=== PATIENT | female | born 1990 | race Caucasian/White ===

== ENCOUNTER 2017-03-02 18:09 | Inpatient (IN) ==
[2017-03-02] MEDS ORDERED: 0.9 % Sodium Chloride 1,000 ML IVC ONE (18:47)
--- NOTE | 2017-03-02 19:05 | Emergency Department Note ---
Disposition Clinical Impression: Abscess, Pain of left lower extremity, Elevated erythrocyte sedimentation rate Leukocytosis Qualifiers: Leukocytosis type: unspecified Qualified Code(s): D72.829 - Elevated white blood cell count, unspecified Disposition: Admitted As Inpatient Condition: Good Extremity Problem HPI - General Chief complaint: ED Extremity Problem,Nontraumatic Stated complaint: "infection in leg" Time Seen by Provider: 03/02/17 18:30 Source: patient Mode of arrival: private vehicle Limitations: no limitations Nursing Notes Reviewed: Yes Vital Signs Reviewed: Yes - History of Present Illness HPI Narrative: 26-year-old female former IVDU, hepatitis who presents to the ER with a chief complaint of left lower extremity pain. Patient reports that she believes on Sunday she was at [facility] and bumped her knee against some object. She states that she was having pain with ambulation and was seen at an urgent care last Sunday. She reports that she was diagnosed with muscle spasms and given anti-inflammatories and muscle relaxants. She states she continued to have pain over the weekend and was seen yesterday by her PCP who ordered an ultrasound of her leg, lab work and an x-ray. She states she was called today because of her lab work and was told to come to the ER for possible admission or transfer to [facility]. She denies any fevers at home. No nausea vomiting diarrhea chest pain or shortness of breath. She denies any recent IV drug use. She has not been on antibiotics. No other complaints. Pt Subjective Complaint: extremity pain Onset (ago): week(s) (1) Consistency: constant Injury Location: left, lower extremity Pain Scale: 9 Quality: sharp Radiation: proximal Improves with: nothing Worsens with: range of motion, weight bearing Associated symptoms: Reports: denies other symptoms - Related Data Home Medications Medication Instructions Recorded Confirmed Naproxen [Naprosyn] 500 mg PO BID PRN 03/02/17 03/02/17 Allergies Allergy/AdvReac Type Severity Reaction Status Date / Time Cyclobenzaprine Allergy Rash Verified 03/02/17 18:24 [From Flexeril] ketorolac [From Toradol] Allergy Hives Verified 10/08/16 15:23 tramadol [From Ultram] Allergy Hives Verified 10/08/16 15:23 All systems ED: reviewed and negative except as stated. Constitutional: Denies: fever Cardiovascular: Denies: chest pain Respiratory: Denies: dyspnea Gastrointestinal: Denies: abdominal pain, vomiting, diarrhea Integumentary: Denies: rash Past Medical History - Past Medical History Attestation: Yes The following information was validated with the patient. 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 history: Reports: endometriosis - Social History Smoking Status: Current every day smoker Smokeless Tobacco Status: No Alcohol use: Reports: none Drug use: Reports: none Physical Exam - General Limitations: no limitations General appearance: alert, in no apparent distress - Head Head exam: atraumatic, normocephalic, normal inspection - Eye Eye exam: Present: normal appearance, EOMI - ENT ENT exam: normal exam - Neck Neck exam: Present: normal inspection, full ROM - Chest Chest inspection: Present: normal inspection, symmetric chest wall rise - Respiratory Respiratory exam: Present: normal lung sounds bilaterally - Cardiovascular Cardiovascular exam: Present: normal rhythm, tachycardia, normal heart sounds - Abdominal Exam Abdominal exam: Present: soft, Non-Tender. Absent: tenderness - Extremities Exam Extremities exam: Present: normal inspection, full ROM - Expanded Upper Extremity Exam Shoulder exam: Present: normal inspection, full ROM Arm exam: Present: normal inspection, full ROM Elbow exam: Present: normal inspection, full ROM Forearm/Wrist exam: Present: normal inspection, full ROM Hand exam: Present: normal inspection, full ROM - Expanded Lower Extremity Exam Hip/Pelvis exam: Present: normal inspection, full ROM Upper leg exam: Present: normal inspection, tenderness (Tender anterior fasical compartment). Absent: full ROM, swelling Knee exam: Present: normal inspection. Absent: full ROM, tenderness, swelling Lower leg exam: Present: normal inspection, full ROM Ankle exam: Present: normal inspection, full ROM Foot/toe exam: Present: normal inspection, full ROM - Neurological Exam Neurological exam: Present: alert - Psychiatric Psychiatric exam: Present: normal affect, normal mood - Skin Skin exam: Present: warm, dry, intact, normal color Course Course Narrative: Patient seen and examined. Vital signs reviewed. She is afebrile here and tachycardic. She has pain out of proportion of the left lower extremity. I reviewed her labs which showed a white count of 21,000 with an ESR greater than 130 and an elevated CRP. We will get a CT scan with contrast of the lower extremity for evaluation. Patient reports she had a duplex ultrasound of the lower extremity yesterday which was negative for DVT. - Reevaluation(s) Reevaluation #1: Discussed results of labs and imaging with the patient. There is concern for an abscess formation in her proximal thigh. She is agreeable with blood cultures, antibiotics and admission. - Consultations Consultation #1: I discussed this patient with the on-call orthopedic surgeon Dr. Muhammad. Discussed patient's history and exam findings CT and labs. He reports to admit the patient to the hospitalist service and the patient would likely benefit from interventional radiology attempting to drain the abscess prior to any type of invasive intervention. Vital Signs Temperature 98.3 F 03/02/17 18:24 Pulse Rate 131 03/02/17 18:24 Respiratory Rate 16 03/02/17 18:24 Blood Pressure 118/70 03/02/17 18:24 O2 Sat by Pulse Oximetry 100 03/02/17 18:24 Temperature 98.4 F 03/02/17 23:27 Pulse Rate 90 03/02/17 23:27 Respiratory Rate 16 03/02/17 23:27 Blood Pressure 110/70 03/02/17 23:27 O2 Sat by Pulse Oximetry 98 03/02/17 23:27 Oxygen Delivery Oxygen Delivery Room Air Extremity Problem, Nontraumati - MDM Narrative Medical decision making narrative: 26-year-old female presents to the ER to the left lower tay any pain and difficulty ambulating. Has been going on for roughly 1 week in duration. No fevers at home. No recent antibiotics. Former history of IV drug abuse. She had abnormal labs which prompted her to come in today. Her white count is 28 here with an elevated ESR and CRP. CT scan shows abscess collection in the thigh encasing the femur. Patient was ordered blood cultures here with vancomycin and Cipro for coverage. Orthopedic surgery was consulted as well in the department and admitted to the hospitalist service. - Lab Data Lab results reviewed: Yes I reviewed the patient's lab results. Result diagrams: 03/02/17 19:06 03/02/17 19:06 Lab Results 03/02/17 03/02/17 03/02/17 Range/Units 19:06 19:06 19:06 WBC 28.7 H (4.3-11.1) K/mcL RBC 4.46 (3.82-4.97) M/mcL Hgb 12.3 (11.5-15.4) g/dL Hct 37.5 (35.3-44.9) % MCV 84.1 (83.0-100.0) fL MCH 27.6 L (28.0-33.3) pg MCHC 32.8 (31.6-35.5) g/dL RDW 14.2 (11.5-14.5) % Plt Count 541 H (140-400) K/mcL MPV 9.2 L (9.4-12.4) fL Immature Gran % 1.3 (0-4) % Seg Neutrophils % 81.5 % Lymphocytes % 14.2 % Monocytes % 2.8 % Eosinophils % 0.0 % Basophils % 0.2 % Neutrophils # 23.4 H (1.6-8.9) K/mcL Lymphocytes # 4.1 (0.6-4.6) K/mcL Monocytes # 0.8 (0.0-1.3) K/mcL Eosinophils # 0.0 (0.0-0.6) K/mcL Basophils # 0.1 (0.0-0.2) K/mcL ESR >= 130 H (0-15) mm/hr PT (9.4-12.1) Seconds INR Sodium 140 (136-145) mEq/L Potassium 3.8 (3.5-4.5) mEq/L Chloride 107 (98-109) mEq/L Carbon Dioxide 20 (19-29) mEq/L BUN 13 (7-20) mg/dL Creatinine 0.77 (0.57-1.11) mg/dL Est GFR ( Amer) > 60 (> 60) Est GFR (Non-Af Amer) > 60 (> 60) BUN/Creatinine Ratio 17 (6-26) Glucose 154 H (70-99) mg/dL Calculated Osmolality 293 (280-300) Calcium 9.7 (8.6-10.8) mg/dL Total Bilirubin (0.2-1.2) mg/dL Direct Bilirubin (0.0-0.5) mg/dL Indirect Bilirubin (0.0-1.2) mg/dL AST (5-34) Units/L ALT (0-55) Units/L Alkaline Phosphatase (38-126) Units/L Creatine Kinase 73 (29-168) Units/L C-Reactive Protein 151 H (Less than 5) mg/L Serum Total Protein (6.0-8.3) g/dL Albumin (3.5-5.0) g/dL Globulin (2.4-3.5) g/dL Albumin/Globulin Ratio (1.1-2.2) 03/02/17 03/02/17 Range/Units 19:51 19:51 WBC (4.3-11.1) K/mcL RBC (3.82-4.97) M/mcL Hgb (11.5-15.4) g/dL Hct (35.3-44.9) % MCV (83.0-100.0) fL MCH (28.0-33.3) pg MCHC (31.6-35.5) g/dL RDW (11.5-14.5) % Plt Count (140-400) K/mcL MPV (9.4-12.4) fL Immature Gran % (0-4) % Seg Neutrophils % % Lymphocytes % % Monocytes % % Eosinophils % % Basophils % % Neutrophils # (1.6-8.9) K/mcL Lymphocytes # (0.6-4.6) K/mcL Monocytes # (0.0-1.3) K/mcL Eosinophils # (0.0-0.6) K/mcL Basophils # (0.0-0.2) K/mcL ESR (0-15) mm/hr PT 17.7 H (9.4-12.1) Seconds INR 1.6 Sodium (136-145) mEq/L Potassium (3.5-4.5) mEq/L Chloride (98-109) mEq/L Carbon Dioxide (19-29) mEq/L BUN (7-20) mg/dL Creatinine (0.57-1.11) mg/dL Est GFR ( Amer) (> 60) Est GFR (Non-Af Amer) (> 60) BUN/Creatinine Ratio (6-26) Glucose (70-99) mg/dL Calculated Osmolality (280-300) Calcium (8.6-10.8) mg/dL Total Bilirubin 0.1 L (0.2-1.2) mg/dL Direct Bilirubin 0.1 (0.0-0.5) mg/dL Indirect Bilirubin 0.0 (0.0-1.2) mg/dL AST 14 (5-34) Units/L ALT 15 (0-55) Units/L Alkaline Phosphatase 106 (38-126) Units/L Creatine Kinase (29-168) Units/L C-Reactive Protein (Less than 5) mg/L Serum Total Protein 7.9 (6.0-8.3) g/dL Albumin 3.0 L (3.5-5.0) g/dL Globulin 4.9 H (2.4-3.5) g/dL Albumin/Globulin Ratio 0.6 L (1.1-2.2) - Radiology Data Radiology results reviewed: Yes I reviewed the patient's radiology results. Lower Extremity CT 03/02/17 18:46 IMPRESSION: 1. 5.5 x 5 x 9.2 cm irregular peripherally enhancing fluid collection within the proximal vastus intermedius muscle partially encasing the proximal left femoral diaphysis and compatible with an abscess. 2. No acute osseous abnormality. D/ / Gianfranco Bob MD / Gianfranco Bob MD Interpreting Provider: Gianfranco Bob MD S.B.A.R. - S.B.ALinoRLino Situation: Demographics, MOA Background: Presenting Complaint, Relevant PMH, Meds, & Allergies Assessment: Vital Signs, Course and respsone to treatment, Exam Concerns, Patient/Family Expectation, Pertinant Lab Results, Outstanding Labs Recommendation: Barrier(s) to disposition, Recommendation based on pending studies, treatments, or consults S.B.A.R. Report Given to: Dr. Goldsmith SLinoBKeven Repor Time: 22:09 (Recommends to put in the consult to orthopedic surgery for evaluation.) Attestation Statement - Attestation Attestation: I personally interviewed and examined this patient and my medical decision- making was reviewed with the ED Resident Physician, Dr. Lawrence I agree with the documented findings, disposition and treatment plan as described except to the extent set forth below. Patient is a 26-year-old white female who was sent here from a local urgent care following abnormal labs with complaints of gradually worsening left lower extremity pain. Patient arrives complaining of pain to her left anterior thigh that extends from distal left thigh that migrates up the front of her thigh towards her hip. Pain seems to spare both the left hip and knee joints. Patient has a history of IV drug use as well as hepatitis, but denies any IV injections into this leg. Patient also denies any recent IV drug use. Patient has not had any fevers or chills. This will be her third evaluation in the last 10 days in regards to this leg pain. Initially she was seen and evaluated and was treated for muscle strain with anti-inflammatories and muscle relaxers. She then followed up with her family doctor who ordered a left lower extremity Doppler due to an elevated d-dimer which was negative for DVT. Patient was then seen in urgent care today had an elevated white count of 21,000 , elevated sedimentation rate of greater than 130, elevated CRP with worsening left thigh pain. I agree with physical exam findings as documented. On my assessment I did not see any soft tissue swelling erythema or sign of effusion to the left knee joint and the left hip was nontender to palpation. Left thighs exquisitely tender to palpation along the anterior midline surface without induration crepitus or overlying erythema. I did not see any evidence of track sellers along the thigh or posterior knee. Left lower extremity is neurovascularly intact and no visible changes when comparing right to left with the exception of the tenderness. We did obtain labs which show an increase in her white count 20,000, elevated sedimentation rate, and CT of the left lower extremity shows deep well- circumscribed abscess along the distal femur. Did speak with with no consult Dr. Muhammad from the emergency department. He does recommend that I are attempted drainage prior to any surgical intervention. We will discuss case with the hospitalist and admit the patient for further evaluation and management. We did go ahead and obtain blood cultures and start IV antibiotics to cover her for osteomyelitis as the abscess appears to be right against the femur. Patient has remained hemodynamically stable and afebrile throughout ED course.
[2017-03-02 19:17] LABS: Basophils % 0.2 %; Mean Corpuscular Volume 84.1 fL (83.0-100.0)
[2017-03-02 19:18] LABS: Basophils # 0.1 K/mcL (0.0-0.2); Hematocrit 37.5 % (35.3-44.9); Hemoglobin 12.3 g/dL (11.5-15.4); Immature Granulocytes % 1.3 % (0-4); Lymphocytes # 4.1 K/mcL (0.6-4.6); Lymphocytes % 14.2 %; Mean Corpuscular HGB Conc 32.8 g/dL (31.6-35.5); Mean Corpuscular Hemoglobin 27.6 pg (28.0-33.3); Mean Platelet Volume 9.2 fL (9.4-12.4); Monocytes # 0.8 K/mcL (0.0-1.3); Monocytes % 2.8 %; Neutrophils # 23.4 K/mcL (1.6-8.9); Platelet Count 541 K/mcL (140-400); Red Blood Count 4.46 M/mcL (3.82-4.97); Red Cell Distribution Width 14.2 % (11.5-14.5); Segmented Neutrophils % 81.5 %
[2017-03-02 19:29] LABS: BUN/Creatinine Ratio 17 (6-26); Blood Urea Nitrogen 13 mg/dL (7-20); Calcium 9.7 mg/dL (8.6-10.8); Carbon Dioxide 20 mEq/L (19-29); Chloride 107 mEq/L (98-109); Creatine Kinase 73 Units/L (29-168); Glucose 154 mg/dL (70-99); Osmolality,Calculated 293 (280-300); Potassium 3.8 mEq/L (3.5-4.5); Sodium 140 mEq/L (136-145); eGFR For African Americans > 60 (> 60); eGFR For Non-African Americans > 60 (> 60)
[2017-03-02 19:40] LABS: C-Reactive Protein 151 mg/L (Less than 5)
[2017-03-02 20:26] LABS: INR 1.6; Prothrombin Time 17.7 Seconds (9.4-12.1)
[2017-03-02 20:34] LABS: Albumin/Globulin Ratio 0.6 (1.1-2.2); Bilirubin,Direct 0.1 mg/dL (0.0-0.5); Bilirubin,Total 0.1 mg/dL (0.2-1.2); Globulin 4.9 g/dL (2.4-3.5); Total Protein 7.9 g/dL (6.0-8.3)
[2017-03-02] MEDS ORDERED: *HR* Morphine 2 MG/ML SYRINGE IVP ONE (21:07)
[2017-03-02] MEDS ORDERED: Vancomycin 1,250 MG in D5% in Water 250 ML IVPB ONE (21:37)
[2017-03-03] MEDS ORDERED: Naloxone 0.4 MG/ML INJ IVP PRN (02:00)
--- NOTE | 2017-03-03 02:00 | Internal Med History&Physical ---
Date of Encounter: 03/03/17 Time of Encounter: 01:00 Assessment and Plan (1) Abscess of left thigh Current visit: Yes Status: Acute CT scan of the left lower extremity showed 5.551.2 cm irregular peripherally enhancing fluid collection within the proximal vastus intermedius muscle compatible with an abscess. She was given IV fluids, IV vancomycin and ciprofloxacin in the ER - treat with IV vancomycin and unasyn. She has h/o IVDU - she denies injecting in the thigh. Will obtain echocardiogram, to exclude endocarditis of tricuspid valve. Orthopedic surgeon was consulted by the ER physician. Will consult IR for guided aspiration. (2) Sepsis Current visit: Yes Status: Acute secondary to abscess of the left thigh - check lactate level. Antibiotics and IV fluids. Qualifiers: Sepsis type: sepsis due to unspecified organism Qualified Code(s): A41.9 - Sepsis, unspecified organism (3) Leukocytosis Current visit: Yes Status: Acute likely secondary to abscess. Pt reports that she was given IM steroid recently, that could also contribute to leukocytosis Qualifiers: Leukocytosis type: unspecified Qualified Code(s): D72.829 - Elevated white blood cell count, unspecified (4) Pain of left lower extremity Current visit: Yes Status: Acute Secondary to abscess / myositis (5) IVDU (intravenous drug user) Current visit: Yes Status: Chronic Will obtain echo to exclude endocarditis Internal Medicine - H&P: HPI Chief complaint: Pain left thigh Admitted From: Emergency Dept Plans for Post Hospital Care: Home History of present illness: Ms. Francisco is a 26 year old female with h/o IVDU (last use of heroin about 10 days ago - did not inject in the thigh), recent diagnosis of hepatitis C - who presents to the ER with h/o left lower extremity pain. Patient reports that about a week ago, she was at [facility] and bumped her knee against some object. She reports pain at the left knee and she was diagnosed with muscle spasms and given anti-inflammatories and muscle relaxants in the urgent care. She reports pain going up to the upper thigh. Pain is sharp, 7/10, worse when she straightens the knee or tries to ambulate. She tried to take ibuprofen, without improvement of the pain. She reports allergy to toradol and tramadol. She denies fever, chills, nausea, vomiting, chest pain, shortness of breath, abdominal pain, dysuria, hematuria, bowel problems. She was evaluated in the emergency department and was noted to have leukocytosis with white cell count of 28.7, CRP 151, ESR 130. Her recent left knee x-ray showed no acute osseous abnormalities. CT scan of the left lower extremity showed 5.551.2 cm irregular peripherally enhancing fluid collection within the proximal vastus intermedius muscle compatible with an abscess. She was given IV fluids, IV vancomycin and ciprofloxacin. She is admitted to the hospitalist service for further workup and management. Past Med Surg Social Fam HX - Past Medical History Medical history: hepatitis Psychiatric history: no psych history - Past Surgical History Surgical History: non-contributory - Social History Smoking Status: Current every day smoker Smokeless Tobacco Status: No Alcohol use: none Drug use: none - Family History Mother Living Status: Still Living Hx Family Cardiac Disorders: Yes (HTN, ND with stent) Hx Family Endocrine Disorder: Yes (DM) Hx Family Neurologic Disorders: Yes Hx Family Psychosocial Disorders: Yes Internal Medicine - H&P: Meds Naproxen [Naprosyn] 500 mg PO BID PRN 03/02/17 [History] Allergies Cyclobenzaprine [From Flexeril] Allergy (Verified 03/02/17 18:24) Rash ketorolac [From Toradol] Allergy (Verified 10/08/16 15:23) Hives tramadol [From Ultram] Allergy (Verified 10/08/16 15:23) Hives All Systems PM: A 10-system review of systems was performed and is negative for pertinent findings except as documented above in the HPI. - Constitutional Vitals: Temp Pulse Resp BP Pulse Ox 98.4 F 90 16 110/70 98 03/02/17 23:27 03/02/17 23:27 03/02/17 23:27 03/02/17 23:27 03/02/17 23:27 Exam: General: In mild distress at the time of my evaluation HEENT: Oral mucosa is moist. No conjunctival palor or scleral icterus Neck: No obvious neck swellings Lungs: Clear to auscultation Cardiac: Regular rate and rhythm. No significant murmurs Abdomen: Soft, non tender. Bowel sounds present Genitourinary: No tavares catheter Neurological: Alert and oriented. No gross localizing deficits Psych: Not aggressive or agitated Extremities: There is local warmth over the left thigh, with swelling and tenderness over the anterior thigh Skin: No generalized rash Internal Med - H&P Results - Labs CBC & Chem 7: 03/02/17 19:06 03/02/17 19:06 - Impressions ITS Impressions Lower Extremity CT 03/02/17 18:46 IMPRESSION: 1. 5.5 x 5 x 9.2 cm irregular peripherally enhancing fluid collection within the proximal vastus intermedius muscle partially encasing the proximal left femoral diaphysis and compatible with an abscess. 2. No acute osseous abnormality. D/ / Gianfranco Bob MD / Gianfranco Bob MD Interpreting Provider: Gianfranco Bob MD
[2017-03-03] MEDS ORDERED: Acetaminophen 325 MG TABLET PO PRN (02:08)
[2017-03-03] MEDS: *HR* HYDROcodone/Acet 5/325 mg TABLET PO PRN ×3 (02:29→15:02)
[2017-03-03] MEDS: 0.9 % Sodium Chloride 1,000 ML IVC SCH ×2 (02:29→19:36)
[2017-03-03] MEDS ORDERED: Vancomycin 1,250 MG in D5% in Water 250 ML IVPB SCH (03:00)
[2017-03-03] MEDS: Ampicillin/Sulbactam 3,000 MG in 0.9 % Sodium Chloride Mini Bag 100 ML IVPB SCH ×4 (03:24→19:36)
[2017-03-03 04:03] LABS: Basophils % 0.1 %; Eosinophils % 0.1 %; Hematocrit 31.7 % (35.3-44.9); Immature Granulocytes % 0.9 % (0-4); Lymphocytes # 5.1 K/mcL (0.6-4.6); Lymphocytes % 24.4 %; Mean Corpuscular HGB Conc 33.4 g/dL (31.6-35.5); Mean Corpuscular Hemoglobin 28.4 pg (28.0-33.3); Mean Platelet Volume 9.6 fL (9.4-12.4); Monocytes # 1.2 K/mcL (0.0-1.3); Monocytes % 5.8 %; Neutrophils # 14.4 K/mcL (1.6-8.9); Platelet Count 436 K/mcL (140-400); Red Blood Count 3.73 M/mcL (3.82-4.97); Red Cell Distribution Width 14.4 % (11.5-14.5); Segmented Neutrophils % 68.7 %
[2017-03-03 04:06] LABS: Hemoglobin 10.6 g/dL (11.5-15.4)
[2017-03-03 04:08] LABS: INR 1.5; Prothrombin Time 16.8 Seconds (9.4-12.1)
[2017-03-03 04:15] LABS: BUN/Creatinine Ratio 22 (6-26); Blood Urea Nitrogen 14 mg/dL (7-20); Calcium 8.6 mg/dL (8.6-10.8); Carbon Dioxide 21 mEq/L (19-29); Chloride 109 mEq/L (98-109); Glucose 105 mg/dL (70-99); Magnesium 2.1 mg/dL (1.6-2.6); Osmolality,Calculated 289 (280-300); Potassium 4.1 mEq/L (3.5-4.5); Sodium 139 mEq/L (136-145); eGFR For African Americans > 60 (> 60); eGFR For Non-African Americans > 60 (> 60)
[2017-03-03] MEDS: Lactobacillus 1 EACH CAP.SPRINK PO SCH ×2 (08:35→21:17)
[2017-03-03] MEDS: Nicotine 21 MG PATCH.TD24 TD SCH (08:36)
--- NOTE | 2017-03-03 08:49 | Internal Med Progress Note ---
Date of Encounter: 03/03/17 Time of Encounter: 08:46 - Assessment and plan (1) Pain of left lower extremity Current Visit: Yes Status: Acute (2) Abscess of left thigh Current Visit: Yes Status: Acute (3) IVDU (intravenous drug user) Current Visit: Yes Status: Chronic (4) Sepsis Current Visit: Yes Status: Acute Qualifiers: Sepsis type: sepsis due to unspecified organism Qualified Code(s): A41.9 - Sepsis, unspecified organism - Subjective Interval history: Mrs. Mignon Francisco is a 26-year-old female admitted with left thigh abscess which is 5 x 5 cm on CAT scan. Cultures are pending. She has history of IV drug abuse mainly uterine and the last time she can resume it was almost 10 days ago. And is currently on vancomycin and Unasyn. 2. Decrease consulted who has recommended interventional radiology to aspirate. Patient is on IV hydration and pain control. CBC CMP and CRP ordered for next few days. Echocardiogram pending - Constitutional Vitals: Temp Pulse Resp BP Pulse Ox 98.4 F 68 15 118/76 99 03/03/17 06:30 03/03/17 06:30 03/03/17 06:30 03/03/17 06:30 03/03/17 06:30 - Head Head exam: Present: atraumatic, normocephalic - Eye Eye exam: Present: PERRL, conjuntiva pink, sclera anicteric Pupils: Present: PERRL - Neck Neck exam general surgery: Present: supple, trachea midline. Absent: lymphadenopathy - Respiratory Respiratory exam: Present: CTAB. Absent: accessory muscle use, rales, rhonchi, wheezes - Cardiovascular Cardiovascular exam: Present: RRR, +S1, +S2. Absent: diastolic murmur, gallop, rubs, systolic murmur - GI/Abdominal GI/Abdominal exam: Present: normal bowel sounds, soft, no peritoneal signs. Absent: distended, tenderness - Extremities Exam Extremities exam: Present: tenderness, warm, radial pulses palpable and symetrical. Absent: calf tenderness, cyanotic, pedal edema Additional comments: Left anterior lateral thigh is slightly tender no redness no significant joint effusion. Patient to call me to examine knee joint as she is complaining of pain. - Neurological Exam Neurological exam: Present: CN II-XII intact, oriented X3, no focal deficits. Absent: pronater drift, facial droop, speech deficit - Skin Skin exam: Present: dry, intact Internal Medicine: Result - Labs CBC & Chem 7: 03/03/17 03:48 03/03/17 03:48 Labs: Short CBC 03/03/17 Range/Units 03:48 WBC 21.0 H (4.3-11.1) K/mcL Hgb 10.6 L D (11.5-15.4) g/dL Hct 31.7 L (35.3-44.9) % Plt Count 436 H (140-400) K/mcL Neutrophils # 14.4 H (1.6-8.9) K/mcL BMP 03/03/17 03:48 Sodium 139 Potassium 4.1 Chloride 109 Carbon Dioxide 21 BUN 14 Creatinine 0.63 Glucose 105 H Calcium 8.6 - ABG Interpretation ABG results: PT/INR, D-dimer PT 16.8 Seconds (9.4-12.1) H 03/03/17 03:48 Consult Discharge Plan - Plan Referrals: Kavon Shetty, SOCIAL SERVICE ASSISTANT [Primary Care Provider] -
[2017-03-03] MEDS: Vancomycin 1,250 MG in D5% in Water 250 ML IVPB SCH ×2 (10:16→22:25)
[2017-03-03] MEDS: *HR* Heparin 5,000 UNIT/ML VIAL SQ SCH ×3 (13:05→23:43)
[2017-03-03] MEDS: *HR* HYDROmorphone (PF) 1 MG/ML SYRINGE IVP PRN ×3 (13:26→23:41)
[2017-03-04] MEDS: Ampicillin/Sulbactam 3,000 MG in 0.9 % Sodium Chloride Mini Bag 100 ML IVPB SCH ×4 (02:49→20:59)
[2017-03-04] MEDS: *HR* HYDROcodone/Acet 5/325 mg TABLET PO PRN ×2 (02:51→22:28)
[2017-03-04] MEDS: 0.9 % Sodium Chloride 1,000 ML IVC SCH ×2 (03:15→20:05)
[2017-03-04 05:40] LABS: Basophils % 0.1 %; Eosinophils % 0.2 %; Hematocrit 31.3 % (35.3-44.9); Hemoglobin 10.4 g/dL (11.5-15.4); Immature Granulocytes % 1.4 % (0-4); Lymphocytes # 4.9 K/mcL (0.6-4.6); Lymphocytes % 28.6 %; Mean Corpuscular HGB Conc 33.2 g/dL (31.6-35.5); Mean Corpuscular Hemoglobin 27.5 pg (28.0-33.3); Mean Corpuscular Volume 82.8 fL (83.0-100.0); Monocytes # 1.6 K/mcL (0.0-1.3); Monocytes % 9.2 %; Neutrophils # 10.4 K/mcL (1.6-8.9); Platelet Count 408 K/mcL (140-400); Red Blood Count 3.78 M/mcL (3.82-4.97); Red Cell Distribution Width 14.4 % (11.5-14.5); Segmented Neutrophils % 60.5 %
[2017-03-04 05:57] LABS: Alanine Aminotransferase 9 Units/L (0-55); Albumin 2.5 g/dL (3.5-5.0); Albumin/Globulin Ratio 0.6 (1.1-2.2); Alkaline Phosphatase 72 Units/L (38-126); Aspartate Amino Transferase 12 Units/L (5-34); BUN/Creatinine Ratio 12 (6-26); Bilirubin,Total 0.2 mg/dL (0.2-1.2); Blood Urea Nitrogen 8 mg/dL (7-20); C-Reactive Protein 99 mg/L (Less than 5); Calcium 8.5 mg/dL (8.6-10.8); Carbon Dioxide 23 mEq/L (19-29); Chloride 107 mEq/L (98-109); Globulin 4.2 g/dL (2.4-3.5); Glucose 103 mg/dL (70-99); Osmolality,Calculated 287 (280-300); Potassium 3.6 mEq/L (3.5-4.5); Sodium 139 mEq/L (136-145); Total Protein 6.7 g/dL (6.0-8.3); eGFR For African Americans > 60 (> 60); eGFR For Non-African Americans > 60 (> 60)
[2017-03-04 06:07] LABS: Acinetobacter baumannii by PCR Not Detected (Not Detect); Candida albicans by PCR Not Detected (Not Detect); Candida glabrata by PCR Not Detected (Not Detect); Candida krusei by PCR Not Detected (Not Detect); Candida parapsilosis by PCR Not Detected (Not Detect); Candida tropicalis by PCR Not Detected (Not Detect); Enterococcus by PCR Not Detected (Not Detect); Escherichia coli by PCR Not Detected (Not Detect); Klebsiella oxytoca by PCR Not Detected (Not Detect); Klebsiella pneumoniae by PCR Not Detected (Not Detect); Pseudomonas aeruginosa by PCR Not Detected (Not Detect); Serratia marcescens by PCR Not Detected (Not Detect); Staphylococcus aureus by PCR ***DETECTED*** (Not Detect); Streptococcus agalactiae(B)PCR Not Detected (Not Detect); Streptococcus by PCR Not Detected (Not Detect); Streptococcus pneumoniae PCR Not Detected (Not Detect); Streptococcus pyogenes (A) PCR Not Detected (Not Detect); mecA Methicillin-Resist Gene ***DETECTED*** (Not Detect)
--- NOTE | 2017-03-04 08:53 | Orthopedic Consult Note ---
Date of Encounter: 03/04/17 Time of Encounter: 08:49 History of Present Illness HPI: Ms. Francisco is a 26 year old female history of IVDA presented with thigh pain left side. Patient with concern for abscess based on CT scan. Patient seen this morning resting comfortably in no acute distress. Left lower extremity neurovascularly intact Thigh compartments soft but tender no erythema No concern for compartment syndrome. CT scan reviewed shows area of collection proximal anterolateral aspect, MRI would be better to evaluate extent of potential abscess Plan for interventional radiology to drain collection in the morning we will continue to follow. Past Med Surg Social Fam HX - Past Medical History Medical history: hepatitis Psychiatric history: no psych history - Past Surgical History Surgical History: non-contributory - Social History Smoking Status: Current every day smoker Smokeless Tobacco Status: No Alcohol use: none Drug use: none - Family History Mother Living Status: Still Living Hx Family Cardiac Disorders: Yes (HTN, [place] with stent) Hx Family Endocrine Disorder: Yes (DM) Hx Family Neurologic Disorders: Yes Hx Family Psychosocial Disorders: Yes Medications and Allergies Naproxen [Naprosyn] 500 mg PO BID PRN 03/02/17 [History] Allergies Cyclobenzaprine [From Flexeril] Allergy (Verified 03/02/17 18:24) Rash ketorolac [From Toradol] Allergy (Verified 10/08/16 15:23) Hives tramadol [From Ultram] Allergy (Verified 10/08/16 15:23) Hives All Systems Reviewed: A 10-system review of systems was performed and is negative for pertinent findings except as documented above in the HPI. Physical Exam - Constitutional Vitals: Temp Pulse Resp BP Pulse Ox 98.2 F 79 16 123/76 99 03/04/17 06:44 03/04/17 06:44 03/04/17 06:44 03/04/17 06:44 03/04/17 06:44 Results - Labs Result Diagrams: 03/04/17 05:31 03/04/17 05:31 Labs: Abnormal lab results WBC 17.2 K/mcL (4.3-11.1) H 03/04/17 05:31 RBC 3.78 M/mcL (3.82-4.97) L 03/04/17 05:31 Hgb 10.4 g/dL (11.5-15.4) L 03/04/17 05:31 Hct 31.3 % (35.3-44.9) L 03/04/17 05:31 MCV 82.8 fL (83.0-100.0) L 03/04/17 05:31 MCH 27.5 pg (28.0-33.3) L 03/04/17 05:31 Plt Count 408 K/mcL (140-400) H 03/04/17 05:31 MPV 9.0 fL (9.4-12.4) L 03/04/17 05:31 Neutrophils # 10.4 K/mcL (1.6-8.9) H 03/04/17 05:31 Lymphocytes # 4.9 K/mcL (0.6-4.6) H 03/04/17 05:31 Monocytes # 1.6 K/mcL (0.0-1.3) H 03/04/17 05:31 ESR >= 130 mm/hr (0-15) H 03/02/17 19:06 PT 16.8 Seconds (9.4-12.1) H 03/03/17 03:48 Glucose 103 mg/dL (70-99) H 03/04/17 05:31 POC Glucose 122 (58-89) H 03/03/17 17:09 Calcium 8.5 mg/dL (8.6-10.8) L 03/04/17 05:31 C-Reactive Protein 99 mg/L (Less than 5) H 03/04/17 05:31 Albumin 2.5 g/dL (3.5-5.0) L 03/04/17 05:31 Globulin 4.2 g/dL (2.4-3.5) H 03/04/17 05:31 Albumin/Globulin Ratio 0.6 (1.1-2.2) L 03/04/17 05:31 Staphylococcus sp PCR DETECTED (Not Detect) A 03/02/17 21:51 Staph aureus (PCR) DETECTED (Not Detect) A 03/02/17 21:51 mecA-Methicil Res Gene DETECTED (Not Detect) A 03/02/17 21:51 H & H 03/04/17 Range/Units 05:31 Hgb 10.4 L (11.5-15.4) g/dL Hct 31.3 L (35.3-44.9) % All other labs normal. Consult Discharge Plan - Plan Referrals: Kavon Shetty CNP [Primary Care Provider] -
[2017-03-04] MEDS: *HR* Heparin 5,000 UNIT/ML VIAL SQ SCH ×3 (09:07→23:30)
[2017-03-04] MEDS: Lactobacillus 1 EACH CAP.SPRINK PO SCH ×3 (09:07→21:03)
[2017-03-04] MEDS: Nicotine 21 MG PATCH.TD24 TD SCH (09:17)
[2017-03-04] MEDS: *HR* HYDROmorphone (PF) 1 MG/ML SYRINGE IVP PRN ×4 (09:17→23:30)
[2017-03-04] MEDS: Vancomycin 1,250 MG in D5% in Water 250 ML IVPB SCH (10:30)
[2017-03-04] MEDS: Ondansetron 4 MG/2 ML VIAL IVP PRN ×3 (10:31→20:05)
--- NOTE | 2017-03-04 14:51 | Internal Med Progress Note ---
Date of Encounter: 03/04/17 Time of Encounter: 14:49 - Assessment and plan (1) Pain of left lower extremity Current Visit: Yes Status: Acute (2) Abscess of left thigh Current Visit: Yes Status: Acute (3) IVDU (intravenous drug user) Current Visit: Yes Status: Chronic (4) Sepsis Current Visit: Yes Status: Acute Qualifiers: Sepsis type: sepsis due to unspecified organism Qualified Code(s): A41.9 - Sepsis, unspecified organism - Subjective Interval history: Mrs. Mignon Francisco is a 26-year-old female admitted with left thigh abscess which is 5 x 5 cm on CAT scan. Cultures are pending. She has history of IV drug abuse mainly uterine and the last time she can resume it was almost 10 days ago. And is currently on vancomycin and Unasyn. 2. Decrease consulted who has recommended interventional radiology to aspirate. Patient is on IV hydration and pain control. CBC CMP and CRP ordered for next few days. Echocardiogram pending 03/04 left thigh area has improved. No discoloration tenderness has resolved. She is awaiting for interventional radiology to do aspiration and see if she has an abscess or hematoma. She is on vancomycin and Unasyn and her white count is coming down gradually while her CRP has gone down to 99 now. Will obtain physical therapy consult and advise her to ambulate - Constitutional Vitals: Temp Pulse Resp BP Pulse Ox 98.5 F 76 14 154/76 95 03/04/17 09:51 03/04/17 09:51 03/04/17 09:51 03/04/17 09:51 03/04/17 09:51 - Head Head exam: Present: atraumatic, normocephalic - Eye Eye exam: Present: PERRL, conjuntiva pink, sclera anicteric Pupils: Present: PERRL - Neck Neck exam general surgery: Present: supple, trachea midline. Absent: lymphadenopathy - Respiratory Respiratory exam: Present: CTAB. Absent: accessory muscle use, rales, rhonchi, wheezes - Cardiovascular Cardiovascular exam: Present: RRR, +S1, +S2. Absent: diastolic murmur, gallop, rubs, systolic murmur - GI/Abdominal GI/Abdominal exam: Present: normal bowel sounds, soft, no peritoneal signs. Absent: distended, tenderness - Extremities Exam Extremities exam: Present: warm, radial pulses palpable and symetrical. Absent : calf tenderness, cyanotic, pedal edema Additional comments: No discoloration of skin and tenderness seems to have resolved. - Neurological Exam Neurological exam: Present: CN II-XII intact, oriented X3, no focal deficits. Absent: pronater drift, facial droop, speech deficit - Skin Skin exam: Present: dry, intact Internal Medicine: Result - Labs CBC & Chem 7: 03/04/17 05:31 03/04/17 05:31 Labs: Short CBC 03/04/17 Range/Units 05:31 WBC 17.2 H (4.3-11.1) K/mcL Hgb 10.4 L (11.5-15.4) g/dL Hct 31.3 L (35.3-44.9) % Plt Count 408 H (140-400) K/mcL Neutrophils # 10.4 H (1.6-8.9) K/mcL BMP 03/04/17 05:31 Sodium 139 Potassium 3.6 Chloride 107 Carbon Dioxide 23 BUN 8 Creatinine 0.65 Glucose 103 H Calcium 8.5 L Liver Function 03/04/17 Range/Units 05:31 Total Bilirubin 0.2 (0.2-1.2) mg/dL AST 12 (5-34) Units/L ALT 9 (0-55) Units/L Alkaline Phosphatase 72 (38-126) Units/L Albumin 2.5 L (3.5-5.0) g/dL - ABG Interpretation ABG results: PT/INR, D-dimer PT 16.8 Seconds (9.4-12.1) H 03/03/17 03:48 Consult Discharge Plan - Plan Referrals: Kavon Shetty, SCREEN MAKER [Primary Care Provider] -
[2017-03-05] MEDS: Ampicillin/Sulbactam 3,000 MG in 0.9 % Sodium Chloride Mini Bag 100 ML IVPB SCH ×4 (02:13→21:56)
[2017-03-05] MEDS: *HR* HYDROmorphone (PF) 1 MG/ML SYRINGE IVP PRN ×6 (02:19→22:10)
[2017-03-05 03:28] LABS: Basophils % 0.2 %; Eosinophils % 0.1 %; Hematocrit 31.4 % (35.3-44.9); Hemoglobin 10.3 g/dL (11.5-15.4); Immature Granulocytes % 2.3 % (0-4); Lymphocytes % 27.1 %; Mean Corpuscular HGB Conc 32.8 g/dL (31.6-35.5); Mean Corpuscular Volume 82.2 fL (83.0-100.0); Monocytes # 1.6 K/mcL (0.0-1.3); Monocytes % 8.4 %; Neutrophils # 11.4 K/mcL (1.6-8.9); Platelet Count 420 K/mcL (140-400); Red Blood Count 3.82 M/mcL (3.82-4.97); Segmented Neutrophils % 61.9 %
[2017-03-05] MEDS ORDERED: Vancomycin 1,250 MG in D5% in Water 250 ML IVPB SCH ×3 (03:30→17:00)
[2017-03-05 03:42] LABS: Alanine Aminotransferase 9 Units/L (0-55); Albumin 2.4 g/dL (3.5-5.0); Albumin/Globulin Ratio 0.6 (1.1-2.2); Alkaline Phosphatase 66 Units/L (38-126); Aspartate Amino Transferase 13 Units/L (5-34); BUN/Creatinine Ratio 13 (6-26); Bilirubin,Total 0.2 mg/dL (0.2-1.2); Blood Urea Nitrogen 9 mg/dL (7-20); C-Reactive Protein 84 mg/L (Less than 5); Calcium 8.4 mg/dL (8.6-10.8); Carbon Dioxide 21 mEq/L (19-29); Chloride 109 mEq/L (98-109); Globulin 4.2 g/dL (2.4-3.5); Glucose 109 mg/dL (70-99); Osmolality,Calculated 285 (280-300); Potassium 3.4 mEq/L (3.5-4.5); Sodium 138 mEq/L (136-145); Total Protein 6.6 g/dL (6.0-8.3); eGFR For African Americans > 60 (> 60); eGFR For Non-African Americans > 60 (> 60)
[2017-03-05] MEDS ORDERED: Vancomycin 1,500 MG in D5% in Water 250 ML IVPB ONE (05:00)
[2017-03-05] MEDS ORDERED: *HR* Heparin 5,000 UNIT/ML VIAL ONE (08:03)
[2017-03-05] MEDS ORDERED: Nicotine 21 MG PATCH.TD24 ONE (08:03)
[2017-03-05] MEDS ORDERED: Lactobacillus 1 EACH CAP.SPRINK ONE (08:04)
[2017-03-05] MEDS ORDERED: 0.9 % Sodium Chloride 1,000 ML ONE (08:04)
[2017-03-05] MEDS ORDERED: 0.9 % Sodium Chloride Mini Bag 100 ML ONE (08:05)
[2017-03-05] MEDS ORDERED: *HR* HYDROcodone/Acet 5/325 mg TABLET ONE (08:27)
[2017-03-05] MEDS: Nicotine 21 MG PATCH.TD24 TD SCH (08:34)
[2017-03-05] MEDS: Lactobacillus 1 EACH CAP.SPRINK PO SCH ×2 (08:35→21:56)
[2017-03-05] MEDS: *HR* Heparin 5,000 UNIT/ML VIAL SQ SCH ×2 (08:35→16:42)
[2017-03-05] MEDS: *HR* HYDROcodone/Acet 5/325 mg TABLET PO PRN ×2 (08:35→16:43)
[2017-03-05] MEDS ORDERED: *HR* HYDROmorphone (PF) 1 MG/ML SYRINGE IVP ONE (10:54)
[2017-03-05] MEDS ORDERED: *HR* HYDROmorphone 2 MG/ML SYRINGE ONE (11:06)
--- NOTE | 2017-03-05 11:27 | IR Procedure Note ---
Date of procedure: 03/05/17 Consent Obtained: Written consent Timeout: Correct patient and procedure verified, Correct site verified, Time out performed, Skin prep completed Local anesthetic: Lidocaine 1% Indications: Left thigh abscess Procedure Performed: Drain placement Site/Technique: 12fr drain placed Results/Findings: 40ml pus removed. Sample sent to lab. Estimated blood loss (cc): 1 Complications: None; Tolerated procedure well Post Procedure Treatment Plan: Monitoring in pts room
--- NOTE | 2017-03-05 16:46 | Internal Med Progress Note ---
Date of Encounter: 03/05/17 Time of Encounter: 16:44 - Assessment and plan (1) Pain of left lower extremity Current Visit: Yes Status: Acute (2) Abscess of left thigh Current Visit: Yes Status: Acute (3) IVDU (intravenous drug user) Current Visit: Yes Status: Chronic (4) Sepsis Current Visit: Yes Status: Acute Qualifiers: Sepsis type: sepsis due to unspecified organism Qualified Code(s): A41.9 - Sepsis, unspecified organism - Subjective Interval history: Mrs. Mignon Francisco is a 26-year-old female admitted with left thigh abscess which is 5 x 5 cm on CAT scan. Cultures are pending. She has history of IV drug abuse mainly uterine and the last time she can resume it was almost 10 days ago. And is currently on vancomycin and Unasyn. 2. Decrease consulted who has recommended interventional radiology to aspirate. Patient is on IV hydration and pain control. CBC CMP and CRP ordered for next few days. Echocardiogram pending 03/04 left thigh area has improved. No discoloration tenderness has resolved. She is awaiting for interventional radiology to do aspiration and see if she has an abscess or hematoma. She is on vancomycin and Unasyn and her white count is coming down gradually while her CRP has gone down to 99 now. Will obtain physical therapy consult and advise her to ambulate 03/05 Left thigh abscess was aspirated today by interventional radiology. Culture report showed MRSA. Vancomycin will be continued and the PICC line is requested. On examination her overall cellulitis swelling and tenderness is improving except that she still has quite a bit of difficulty in flexing her knee joint. An echocardiogram was done previously which did not show any vegetation. CBC CMP CRP will be followed. An x-ray of her hip will be obtained. - Constitutional Vitals: Temp Pulse Resp BP Pulse Ox 99.0 F 64 16 125/86 98 03/05/17 07:27 03/05/17 11:22 03/05/17 11:22 03/05/17 11:22 03/05/17 11:22 Internal Medicine: Result - Labs CBC & Chem 7: 03/05/17 03:20 03/05/17 03:20 Labs: Short CBC 03/05/17 Range/Units 03:20 WBC 18.5 H (4.3-11.1) K/mcL Hgb 10.3 L (11.5-15.4) g/dL Hct 31.4 L (35.3-44.9) % Plt Count 420 H (140-400) K/mcL Neutrophils # 11.4 H (1.6-8.9) K/mcL BMP 03/05/17 03:20 Sodium 138 Potassium 3.4 L Chloride 109 Carbon Dioxide 21 BUN 9 Creatinine 0.68 Glucose 109 H Calcium 8.4 L Liver Function 03/05/17 Range/Units 03:20 Total Bilirubin 0.2 (0.2-1.2) mg/dL AST 13 (5-34) Units/L ALT 9 (0-55) Units/L Alkaline Phosphatase 66 (38-126) Units/L Albumin 2.4 L (3.5-5.0) g/dL - ABG Interpretation ABG results: PT/INR, D-dimer PT 16.8 Seconds (9.4-12.1) H 03/03/17 03:48 - Impressions Impressions Needle Aspiration CT 03/05/17 00:00 IMPRESSION: Successful drain placement into a left thigh abscess, with approximately 40 mL of purulent material removed. The catheter was placed to suction bulb drainage. D/ / Austin Curran MD / Austin Curran MD Interpreting Provider: Austin Curran MD Consult Discharge Plan - Plan Referrals: Kavon Shetty, [employer]OR [Primary Care Provider] -
[2017-03-05] MEDS: 0.9 % Sodium Chloride 1,000 ML IVC SCH (16:50)
[2017-03-05] MEDS: Vancomycin 1,250 MG in D5% in Water 250 ML IVPB SCH (19:44)
[2017-03-06] MEDS: *HR* Heparin 5,000 UNIT/ML VIAL SQ SCH ×4 (02:07→23:51)
[2017-03-06] MEDS: Ampicillin/Sulbactam 3,000 MG in 0.9 % Sodium Chloride Mini Bag 100 ML IVPB SCH ×4 (02:08→20:49)
[2017-03-06] MEDS: *HR* HYDROcodone/Acet 5/325 mg TABLET PO PRN ×4 (02:09→23:52)
[2017-03-06] MEDS: *HR* HYDROmorphone (PF) 1 MG/ML SYRINGE IVP PRN ×5 (05:39→20:48)
[2017-03-06 05:52] LABS: Basophils # 0.1 K/mcL (0.0-0.2); Basophils % 0.4 %; Eosinophils # 0.1 K/mcL (0.0-0.6); Eosinophils % 0.5 %; Hematocrit 31.1 % (35.3-44.9); Hemoglobin 10.6 g/dL (11.5-15.4); Immature Granulocytes % 3.8 % (0-4); Lymphocytes # 5.5 K/mcL (0.6-4.6); Lymphocytes % 31.1 %; Mean Corpuscular HGB Conc 34.1 g/dL (31.6-35.5); Mean Corpuscular Volume 82.3 fL (83.0-100.0); Mean Platelet Volume 9.4 fL (9.4-12.4); Monocytes % 5.6 %; Neutrophils # 10.4 K/mcL (1.6-8.9); Platelet Count 425 K/mcL (140-400); Red Blood Count 3.78 M/mcL (3.82-4.97); Red Cell Distribution Width 14.2 % (11.5-14.5); Segmented Neutrophils % 58.6 %
[2017-03-06 06:06] LABS: Alanine Aminotransferase 12 Units/L (0-55); Albumin 2.4 g/dL (3.5-5.0); Albumin/Globulin Ratio 0.5 (1.1-2.2); Alkaline Phosphatase 67 Units/L (38-126); Aspartate Amino Transferase 16 Units/L (5-34); BUN/Creatinine Ratio 12 (6-26); Bilirubin,Total 0.3 mg/dL (0.2-1.2); Blood Urea Nitrogen 8 mg/dL (7-20); C-Reactive Protein 83 mg/L (Less than 5); Calcium 8.5 mg/dL (8.6-10.8); Carbon Dioxide 23 mEq/L (19-29); Chloride 108 mEq/L (98-109); Globulin 4.4 g/dL (2.4-3.5); Glucose 97 mg/dL (70-99); Osmolality,Calculated 286 (280-300); Potassium 3.3 mEq/L (3.5-4.5); Sodium 139 mEq/L (136-145); Total Protein 6.8 g/dL (6.0-8.3); eGFR For African Americans > 60 (> 60); eGFR For Non-African Americans > 60 (> 60)
--- NOTE | 2017-03-06 06:51 | Orthopedics Progress Note ---
Date of Encounter: 03/06/17 Time of Encounter: 06:49 Subjective Interval history: Patient seen this morning resting comfortably following abscess drainage by interventional radiology. Review of note reveals 40 mL of purulent fluid drained Gram stain positive for bacteria most likely consistent with her positive blood culture for staph aureus MRSA. Patient has drain in place recommend continued IV antibiotics Reconsult if necessary. Objective Vital signs: Vital Signs Temp Pulse Resp BP Pulse Ox 03/06/17 04:56 99.2 F 60 15 130/75 98 03/05/17 23:58 100.0 F H 67 16 132/75 98 03/05/17 19:46 99.2 F 52 15 115/66 100 03/05/17 16:58 98.1 F 59 16 121/73 100 03/05/17 11:22 64 16 125/86 98 03/05/17 11:17 65 16 136/89 99 03/05/17 07:27 99.0 F 63 16 113/65 99 Intake and Output 03/05/17 03/05/17 03/06/17 15:59 23:59 07:59 Intake Total 200 / 200 1450 / 1450 100 / 100 Output Total 1275 / 1275 Balance 200 / 200 1434 / 1434 -1175 / -1175 Intake: IV Fluids 200 / 200 1450 / 1450 100 / 100 0.9 % Sodium Chloride 1, 1000 / 1000 000 ML @ 80 mls/hr IVC . [id number] RYAN Rx#: [id number] Unasyn 3,000 MG In 0.9 % 200 / 200 200 / 200 100 / 100 Sodium Chloride (Mini-Bag +) 100 ML @ 200 mls/hr IVPB Q6H RYAN Rx#: [id number] Vancocin 1,250 MG In 250 / 250 Dextrose 5% 250 ML @ 166. 67 mls/hr IVPB Q12H RYAN Rx#:[id number] Output: Urine 1275 / 1275 Wound Drainage Left Thigh Other: # Voids 2 1 1 # Bowel Movements 2 - Labs CBC & BMP: 03/06/17 05:36 03/06/17 05:36 Labs: Abnormal lab results WBC 17.8 K/mcL (4.3-11.1) H 03/06/17 05:36 RBC 3.78 M/mcL (3.82-4.97) L 03/06/17 05:36 Hgb 10.6 g/dL (11.5-15.4) L 03/06/17 05:36 Hct 31.1 % (35.3-44.9) L 03/06/17 05:36 MCV 82.3 fL (83.0-100.0) L 03/06/17 05:36 Plt Count 425 K/mcL (140-400) H 03/06/17 05:36 Neutrophils # 10.4 K/mcL (1.6-8.9) H 03/06/17 05:36 Lymphocytes # 5.5 K/mcL (0.6-4.6) H 03/06/17 05:36 ESR >= 130 mm/hr (0-15) H 03/02/17 19:06 PT 16.8 Seconds (9.4-12.1) H 03/03/17 03:48 Potassium 3.3 mEq/L (3.5-4.5) L 03/06/17 05:36 POC Glucose 122 (58-89) H 03/03/17 17:09 Calcium 8.5 mg/dL (8.6-10.8) L 03/06/17 05:36 C-Reactive Protein 83 mg/L (Less than 5) H 03/06/17 05:36 Albumin 2.4 g/dL (3.5-5.0) L 03/06/17 05:36 Globulin 4.4 g/dL (2.4-3.5) H 03/06/17 05:36 Albumin/Globulin Ratio 0.5 (1.1-2.2) L 03/06/17 05:36 Staphylococcus sp PCR DETECTED (Not Detect) A 03/02/17 21:51 Staph aureus (PCR) DETECTED (Not Detect) A 03/02/17 21:51 mecA-Methicil Res Gene DETECTED (Not Detect) A 03/02/17 21:51 Consult Discharge Plan - Plan Referrals: Kavon Shetty, MANAGER LAUNDRY [Primary Care Provider] -
[2017-03-06] MEDS: 0.9 % Sodium Chloride 1,000 ML IVC SCH ×3 (07:41→23:50)
[2017-03-06] MEDS: Lactobacillus 1 EACH CAP.SPRINK PO SCH ×2 (07:41→20:48)
[2017-03-06] MEDS: Vancomycin 1,250 MG in D5% in Water 250 ML IVPB SCH (07:42)
[2017-03-06] MEDS: Nicotine 21 MG PATCH.TD24 TD SCH ×2 (07:47→14:38)
[2017-03-06] MEDS ORDERED: Potassium Chloride Elixir 20 MEQ/15 ML UDC PO ONE (08:17)
--- NOTE | 2017-03-06 08:26 | Discharge Summary ---
Date of Encounter: 03/06/17 Time of Encounter: 08:23 - Discharge Diagnosis (1) Pain of left lower extremity Priority: Secondary Status: Acute (2) Abscess of left thigh Priority: Primary Status: Acute (3) IVDU (intravenous drug user) Priority: Secondary Status: Chronic (4) Sepsis Priority: Primary Status: Acute Qualifiers: Sepsis type: methicillin resistant Staphylococcus aureus Qualified Code(s) : A41.02 - Sepsis due to Methicillin resistant Staphylococcus aureus (5) Hypokalemia Priority: Secondary Status: Resolved - Discharge Medications Prescriptions: HYDROcodone/Acet 5/325 mg [[place] 5-325 mg] 1 tab PO Q6HR PRN #12 tablet PRN Reason: Moderate Pain Home Medications: Acetaminophen [Tylenol] 650 mg PO Q6HR PRN #0 tablet 03/06/17 [Rx] HYDROcodone/Acet 5/325 mg [[place] 5-325 mg] 1 tab PO Q6HR PRN #12 tablet [Rx] Nicotine Patch [Nicoderm] 21 mg TD DAILY patch.td24 03/06/17 [Rx] Allergies/Adverse Reactions: Allergies Cyclobenzaprine [From Flexeril] Allergy (Verified 03/02/17 18:24) Rash ketorolac [From Toradol] Allergy (Verified 10/08/16 15:23) Hives tramadol [From Ultram] Allergy (Verified 10/08/16 15:23) Hives Procedures/tests Complete & Pending: Procedures Performed prior 72 hours Category Date Time Status CT guided asp with tube [CT] Routine Cat Scan 03/05/17 Completed Date of admission: 03/03/17 02:00 Primary care physician: Kavon Shetty CNP Consults: 03/03/17 02:07 Consult to Interventional Radiology [CONS] Routine Consulting Provider: Radiology Interventional Cols Reason for Consult: Left thigh abscess Call Completed: No 03/04/17 14:47 Consult to Physical Therapy [CONS] Routine Comment: Evaluate, develop and implement POC Reason for Consult: Left thigh abscess myositis 03/05/17 07:45 Consult to Interventional Radiology [CONS] Routine Consulting Provider: Radiology Interventional Cols Reason for Consult: LEFT THIGH ABSCESS Call Completed: Yes 03/05/17 16:41 PICC LINE [Consult to Invasive Line Access Team] [CONS] Routine Reason for Consult: She needs PICC line for IV vancomycin as outpatient treatment Line Type: PICC PICC line indications: nursing home Med/Antibiotic Discharging clinician: Levi Arndt Anticipated date of discharge: 03/06/17 - Patient Status Disposition: Transfer SNF Condition: Good Overall status at discharge: patient is progressing back to baseline - Discharge Instructions Follow Up With: Kavon Shetty, HARLEY [Primary Care Provider] - (ecf placement) - Diet and Activity Activity: resume usual activities as tolerated Diet: advance to your usual diet, regular diet Interval History: Mrs. Mignon Francisco is a 26-year-old female admitted with left thigh abscess which is 5 x 5 cm on CAT scan. Cultures showed MRSA sensitive to vancomycin.. She has history of IV drug abuse mainly HEROINE and the last time she can resume it was almost 10 days ago. In hospital she was treated with vancomycin and Unasyn. Orthopedic was consulted who has recommended interventional radiology to aspirate. IR aspirated 40 mL purulent discharge. A drain is left. Echocardiogram showed normal ejection fraction and no valvular abnormality. Gradually left thigh cellulitis , Pain and induration has improved. Although her white count stays around 17-18,000 but her CRP is coming down. Since cultures are positive for MRSA we will DC Unasyn. Her potassium was low which is supplemented. Considering the fact that she is IV drug abuser she will be [facility] to [facility] for completion for off for IV antibiotics in the meantime she will continue to follow with orthopedic surgeon. she still has quite a bit of difficulty in flexing her knee joint. However, knee x-ray did not show any effusion or any other abnormality. Physical therapy was consulted. Hospital course: Ms. Francisco is a 26 year old female - Time Spent with Patient Total time spent providing and/or coordinating discharge services: Greater than 30 minutes - Constitutional Vitals: Temp Pulse Resp BP Pulse Ox 98.4 F 52 17 131/87 99 03/06/17 07:10 03/06/17 07:10 03/06/17 07:10 03/06/17 07:10 03/06/17 07:10 - Head Head exam: Present: atraumatic, normocephalic - Eye Eye exam: Present: PERRL, conjuntiva pink, sclera anicteric Pupils: Present: PERRL - Neck Neck exam general surgery: Present: supple, trachea midline. Absent: lymphadenopathy - Respiratory Respiratory exam: Present: CTAB. Absent: accessory muscle use, rales, rhonchi, wheezes - Cardiovascular Cardiovascular exam: Present: RRR, +S1, +S2. Absent: diastolic murmur, gallop, rubs, systolic murmur - GI/Abdominal GI/Abdominal exam: Present: normal bowel sounds, soft, no peritoneal signs. Absent: distended, tenderness - Extremities Exam Extremities exam: Present: warm, radial pulses palpable and symetrical. Absent : calf tenderness, cyanotic, pedal edema Additional comments: Left thyroid redness swelling and induration has resolved drain is in place. Left knee swelling has gone down ambulation is better. PTOT has seen her. - Neurological Exam Neurological exam: Present: CN II-XII intact, oriented X3, no focal deficits. Absent: pronater drift, facial droop, speech deficit - Skin Skin exam: Present: dry, intact
[2017-03-06] MEDS ORDERED: Vancomycin 500 MG in D5% in Water (Mini-Bag+) 100 ML IVPB ONE (09:00)
[2017-03-06] MEDS: Vancomycin 1,500 MG in D5% in Water 250 ML IVPB SCH (23:51)
[2017-03-07] MEDS: Ampicillin/Sulbactam 3,000 MG in 0.9 % Sodium Chloride Mini Bag 100 ML IVPB SCH ×2 (02:43→08:53)
[2017-03-07] MEDS: *HR* HYDROmorphone (PF) 1 MG/ML SYRINGE IVP PRN (02:44)
[2017-03-07] MEDS: Lactobacillus 1 EACH CAP.SPRINK PO SCH ×2 (08:52→20:36)
[2017-03-07] MEDS: Nicotine 21 MG PATCH.TD24 TD SCH (08:52)
[2017-03-07] MEDS: *HR* Heparin 5,000 UNIT/ML VIAL SQ SCH ×2 (08:53→15:26)
[2017-03-07] MEDS: *HR* HYDROcodone/Acet 5/325 mg TABLET PO PRN (08:53)
[2017-03-07 09:15] LABS: Hemoglobin 10.8 g/dL (11.5-15.4); Mean Corpuscular HGB Conc 31.8 g/dL (31.6-35.5); Mean Corpuscular Hemoglobin 27.2 pg (28.0-33.3); Mean Corpuscular Volume 85.6 fL (83.0-100.0); Mean Platelet Volume 9.4 fL (9.4-12.4); Platelet Count 426 K/mcL (140-400); Red Blood Count 3.97 M/mcL (3.82-4.97); Red Cell Distribution Width 14.4 % (11.5-14.5)
[2017-03-07] MEDS ORDERED: *HR* HYDROmorphone (PF) 1 MG/ML SYRINGE IVP PRN (09:46)
[2017-03-07 09:54] LABS: Lymphocytes # 7.2 K/mcL (0.6-4.6); Monocytes # 0.3 K/mcL (0.0-1.3); Neutrophils # 8.2 K/mcL (1.6-8.9); Platelet Estimate Increased (Normal)
[2017-03-07] MEDS: Vancomycin 1,500 MG in D5% in Water 250 ML IVPB SCH (10:06)
[2017-03-07 10:57] LABS: Alanine Aminotransferase 11 Units/L (0-55); Albumin 2.4 g/dL (3.5-5.0); Albumin/Globulin Ratio 0.6 (1.1-2.2); Alkaline Phosphatase 60 Units/L (38-126); Aspartate Amino Transferase 12 Units/L (5-34); BUN/Creatinine Ratio 9 (6-26); Bilirubin,Total 0.2 mg/dL (0.2-1.2); Blood Urea Nitrogen 6 mg/dL (7-20); C-Reactive Protein 65 mg/L (Less than 5); Calcium 8.2 mg/dL (8.6-10.8); Carbon Dioxide 25 mEq/L (19-29); Chloride 106 mEq/L (98-109); Globulin 4.1 g/dL (2.4-3.5); Glucose 85 mg/dL (70-99); Osmolality,Calculated 285 (280-300); Potassium 3.1 mEq/L (3.5-4.5); Sodium 139 mEq/L (136-145); Total Protein 6.5 g/dL (6.0-8.3); eGFR For African Americans > 60 (> 60); eGFR For Non-African Americans > 60 (> 60)
[2017-03-07] MEDS ORDERED: Acetaminophen 325 MG TABLET PO PRN (11:46)
[2017-03-07] MEDS ORDERED: *HR* HYDROcodone/Acet 5/325 mg TABLET PO PRN (11:47)
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
[2017-03-07] MEDS: 0.9 % Sodium Chloride 1,000 ML IVC SCH (12:27)
--- NOTE | 2017-03-07 14:46 | Internal Med Progress Note ---
Date of Encounter: 03/07/17 Time of Encounter: 09:00 - Assessment and plan (1) DVT prophylaxis Current Visit: Yes Status: Acute Assessment and plan: Heparin subcutaneously (2) Abscess of left thigh Current Visit: Yes Status: Acute Assessment and plan: SP drainage by interventional radiology. On antibiotic. WBC is still high but trended down. Culture shows MRSA. Continue vancomycin. ID consult appreciated. Patient is at high risk because of vancomycin, need close monitoring. (3) Bacteremia Current Visit: Yes Status: Acute Assessment and plan: Blood culture positive for MRSA. We will repeat a blood culture. May need a long-term antibiotic. (4) Endocarditis Current Visit: Yes Status: Acute Assessment and plan: TTE shows suspected vegetation. May need a ALIVIA. ID consult appreciated. In the long-term antibiotic treatment Qualifiers: Endocarditis type: infective Infective endocarditis organism: bacterial Chronicity: acute Qualified Code(s): I33.0 - Acute and subacute infective endocarditis (5) Hepatitis C antibody positive in blood Current Visit: Yes Status: Acute Assessment and plan: Patient is aware of she has hep C. She will follow PCP and treated as outpatient (6) Hypokalemia Current Visit: Yes Status: Acute Assessment and plan: Will give potassium supplement. (7) IVDU (intravenous drug user) Current Visit: Yes Status: Chronic Assessment and plan: childcare worker consult. Patient may need ECF discharge for long-term IV antibiotic use - Time Spent With Patient Greater than 35 minutes - Subjective Interval history: Patient is a 26-year-old female admitted for left thigh abscess. Her past medical history is significant for IV drug abuse, hepatitis C positive. Patient had drainage placed by IR. I saw and examined the patient. Complaining of left-sided thigh pain. Otherwise no complaints. Vitals are stable. No fever. First set of blood culture shows MRSA. ID consult appreciated. We will continue vancomycin. Patient to need a long-term iv antibiotic treatment. - Constitutional Vitals: Temp Pulse Resp BP Pulse Ox 98.1 F 59 14 124/77 97 03/07/17 07:36 03/07/17 07:36 03/07/17 07:36 03/07/17 07:36 03/07/17 07:36 General appearance: Present: A&O X 3, no acute distress, answers questions appropriately - Head Head exam: Present: atraumatic, normocephalic - Eye Eye exam: Present: PERRL, conjuntiva pink, sclera anicteric Pupils: Present: PERRL - Neck Neck exam general surgery: Present: supple, trachea midline. Absent: lymphadenopathy - Respiratory Respiratory exam: Present: CTAB. Absent: accessory muscle use, rales, rhonchi, wheezes - Cardiovascular Cardiovascular exam: Present: RRR, +S1, +S2. Absent: diastolic murmur, gallop, rubs, systolic murmur - GI/Abdominal GI/Abdominal exam: Present: normal bowel sounds, soft, no peritoneal signs. Absent: distended, tenderness - Extremities Exam Extremities exam: Present: warm, radial pulses palpable and symetrical. Absent : calf tenderness, cyanotic, pedal edema Additional comments: Left thigh drainage in place - Neurological Exam Neurological exam: Present: CN II-XII intact, oriented X3, no focal deficits. Absent: pronater drift, facial droop, speech deficit - Skin Skin exam: Present: dry, intact Internal Medicine: Result - Labs CBC & Chem 7: 03/07/17 08:13 03/07/17 08:13 Labs: Short CBC 03/07/17 Range/Units 08:13 WBC 16.3 H (4.3-11.1) K/mcL Hgb 10.8 L (11.5-15.4) g/dL Hct 34.0 L (35.3-44.9) % Plt Count 426 H (140-400) K/mcL Neutrophils # 8.2 (1.6-8.9) K/mcL BMP 03/07/17 08:13 Sodium 139 Potassium 3.1 L Chloride 106 Carbon Dioxide 25 BUN 6 L Creatinine 0.68 Glucose 85 Calcium 8.2 L Liver Function 03/07/17 Range/Units 08:13 Total Bilirubin 0.2 (0.2-1.2) mg/dL AST 12 (5-34) Units/L ALT 11 (0-55) Units/L Alkaline Phosphatase 60 (38-126) Units/L Albumin 2.4 L (3.5-5.0) g/dL - ABG Interpretation ABG results: PT/INR, D-dimer PT 16.8 Seconds (9.4-12.1) H 03/03/17 03:48 Consult Discharge Plan - Plan Referrals: Kavon Shetty, HARLEY [Primary Care Provider] - (ecf placement) Prescriptions: HYDROcodone/Acet 5/325 mg [[place] 5-325 mg] 1 tab PO Q6HR PRN #12 tablet PRN Reason: Moderate Pain
[2017-03-07] MEDS: *HR* OxyCODONE/APAP 10/325 TABLET PO PRN ×2 (15:31→20:36)
[2017-03-08] MEDS ORDERED: Vancomycin 1,750 MG in D5% in Water 500 ML IVPB SCH (00:05)
[2017-03-08] MEDS: *HR* OxyCODONE/APAP 10/325 TABLET PO PRN ×6 (00:20→22:38)
[2017-03-08] MEDS: 0.9 % Sodium Chloride 1,000 ML IVC SCH ×2 (01:02→12:03)
[2017-03-08] MEDS: *HR* Heparin 5,000 UNIT/ML VIAL SQ SCH ×3 (04:23→16:32)
[2017-03-08 06:16] LABS: Basophils # 0.1 K/mcL (0.0-0.2); Basophils % 0.3 %; Eosinophils # 0.3 K/mcL (0.0-0.6); Eosinophils % 1.2 %; Hematocrit 30.5 % (35.3-44.9); Hemoglobin 9.9 g/dL (11.5-15.4); Immature Granulocytes % 3.9 % (0-4); Lymphocytes % 23.5 %; Mean Corpuscular HGB Conc 32.5 g/dL (31.6-35.5); Mean Corpuscular Hemoglobin 27.7 pg (28.0-33.3); Mean Corpuscular Volume 85.2 fL (83.0-100.0); Mean Platelet Volume 9.6 fL (9.4-12.4); Monocytes % 4.6 %; Platelet Count 386 K/mcL (140-400); Red Blood Count 3.58 M/mcL (3.82-4.97); Red Cell Distribution Width 14.6 % (11.5-14.5); Segmented Neutrophils % 66.5 %
[2017-03-08 06:36] LABS: Alanine Aminotransferase 7 Units/L (0-55); Albumin 2.4 g/dL (3.5-5.0); Albumin/Globulin Ratio 0.6 (1.1-2.2); Alkaline Phosphatase 58 Units/L (38-126); Aspartate Amino Transferase 10 Units/L (5-34); BUN/Creatinine Ratio 6 (6-26); Bilirubin,Total 0.2 mg/dL (0.2-1.2); C-Reactive Protein 48 mg/L (Less than 5); Calcium 8.2 mg/dL (8.6-10.8); Carbon Dioxide 23 mEq/L (19-29); Chloride 110 mEq/L (98-109); Glucose 81 mg/dL (70-99); Osmolality,Calculated 286 (280-300); Potassium 3.6 mEq/L (3.5-4.5); Sodium 140 mEq/L (136-145); Total Protein 6.4 g/dL (6.0-8.3); eGFR For African Americans > 60 (> 60); eGFR For Non-African Americans > 60 (> 60)
[2017-03-08 06:39] LABS: Blood Urea Nitrogen 4 mg/dL (7-20)
[2017-03-08] MEDS: Lactobacillus 1 EACH CAP.SPRINK PO SCH ×2 (09:01→22:38)
[2017-03-08] MEDS: Nicotine 21 MG PATCH.TD24 TD SCH (09:01)
[2017-03-08] MEDS: Vancomycin 2,000 MG in D5% in Water 500 ML IVPB SCH ×2 (12:03→22:31)
--- NOTE | 2017-03-08 12:54 | Orthopedics Progress Note ---
Date of Encounter: 03/08/17 Time of Encounter: 12:53 - Assessment and Plan (1) Abscess of left thigh Current Visit: Yes Status: Acute POD#2 - Left Thigh - IR aspiration with drain placement - +MRSA Discussed with patient and ID, patient continues to have purulent drainage collect into drain, with a recent increase in drainage yesterday. Worsening of leukocytosis of concern. No other source of infection at this time, concerned that Left thigh abscess is not properly draining or has loculated. Discussed with . Will obtain MRI stat today to reassess intramuscular abscess. Scheduled for a Left Thigh I&D tomorrow with . NPO after midnight. Patient voiced understanding. Consent signed and reviewed. (2) IVDU (intravenous drug user) Current Visit: Yes Status: Chronic (3) Sepsis Current Visit: Yes Status: Acute Qualifiers: Sepsis type: methicillin resistant Staphylococcus aureus Qualified Code(s) : A41.02 - Sepsis due to Methicillin resistant Staphylococcus aureus (4) Bacteremia Current Visit: Yes Status: Acute (5) Hepatitis C antibody positive in blood Current Visit: Yes Status: Acute Subjective Principal diagnosis: Left Thigh Abscess Interval history: POD#2 - IR Aspiration of Left thigh with drain placement Patient continues to have left thigh pain, no erythema or fluctuance noted. 50ml of purulent drainage from drain yesterday. Worsening of leukocytosis today 21, despite IV antibiotics. CRP improving. Objective Vital signs: Vital Signs Temp Pulse Resp BP Pulse Ox 03/08/17 12:12 98.5 F 88 16 112/66 99 03/08/17 03:38 98.2 F 57 14 120/70 99 03/07/17 19:25 98.1 F 66 15 128/82 98 03/07/17 16:45 98.3 F 56 13 110/70 98 Intake and Output 03/07/17 03/08/17 03/08/17 23:59 07:59 15:59 Intake Total 240 / 240 1860 / 1860 1235 / 1235 Output Total Balance 240 / 240 1845 / 1845 1225 / 1225 Intake: IV Fluids 1500 / 1500 995 / 995 0.9 % Sodium Chloride 1, 1000 / 1000 995 / 995 000 ML @ 80 mls/hr IVC . [id number] [facility] Rx#: [id number] Vancocin 1,750 MG In 500 / 500 Dextrose 5% 500 ML @ 333. 34 mls/hr IVPB Q12H [facility] Rx#:[id number] Oral 240 / 240 360 / 360 240 / 240 Output: Wound Drainage Left Thigh Other: Meal Dinner Breakfast Percent of Meal Consumed 50% 40% # Voids 1 1 1 Weight 75.9 kg Patient Weight 03/08/17 23:59 Weight 75.9 kg Incision: draining - Labs CBC & BMP: 03/08/17 05:47 03/08/17 05:47 Labs: Abnormal lab results WBC 21.1 K/mcL (4.3-11.1) H 03/08/17 05:47 RBC 3.58 M/mcL (3.82-4.97) L 03/08/17 05:47 Hgb 9.9 g/dL (11.5-15.4) L 03/08/17 05:47 Hct 30.5 % (35.3-44.9) L 03/08/17 05:47 MCH 27.7 pg (28.0-33.3) L 03/08/17 05:47 RDW 14.6 % (11.5-14.5) H 03/08/17 05:47 Metamyelocytes % 2.0 % (0) H 03/07/17 08:13 Myelocytes % 2.0 % (0) H 03/07/17 08:13 Neutrophils # 14.0 K/mcL (1.6-8.9) H 03/08/17 05:47 Lymphocytes # 5.0 K/mcL (0.6-4.6) H 03/08/17 05:47 Platelet Estimate Increased (Normal) H 03/07/17 08:13 ESR >= 130 mm/hr (0-15) H 03/02/17 19:06 PT 16.8 Seconds (9.4-12.1) H 03/03/17 03:48 Chloride 110 mEq/L (98-109) H 03/08/17 05:47 BUN 4 mg/dL (7-20) L 03/08/17 05:47 POC Glucose 122 (58-89) H 03/03/17 17:09 Calcium 8.2 mg/dL (8.6-10.8) L 03/08/17 05:47 C-Reactive Protein 48 mg/L (Less than 5) H 03/08/17 05:47 Albumin 2.4 g/dL (3.5-5.0) L 03/08/17 05:47 Globulin 4.0 g/dL (2.4-3.5) H 03/08/17 05:47 Albumin/Globulin Ratio 0.6 (1.1-2.2) L 03/08/17 05:47 Vancomycin Trough 8.8 mcg/mL (10-20) L 03/07/17 21:59 Staphylococcus sp PCR DETECTED (Not Detect) A 03/02/17 21:51 Staph aureus (PCR) DETECTED (Not Detect) A 03/02/17 21:51 mecA-Methicil Res Gene DETECTED (Not Detect) A 03/02/17 21:51 Consult Discharge Plan - Plan Referrals: Kavon Shetty, CUSTODIAL MAINTENANCE WORKER [Primary Care Provider] - (ecf placement) Prescriptions: HYDROcodone/Acet 5/325 mg [[place] 5-325 mg] 1 tab PO Q6HR PRN #12 tablet PRN Reason: Moderate Pain Vancomycin/0.9 % Sod Chloride [Vanco 2 Gram/500 ml-0.9% NaCl] 2 gm IV Q12H #14 plast..bag
--- NOTE | 2017-03-08 14:28 | Infectious Disease Progress No ---
Date of Encounter: 03/08/17 Time of Encounter: 11:45 - Assessment and Plan (1) Sepsis Current Visit: Yes Status: Acute The patient had two SIRS criteria on admission. Likely secondary to left thigh abscess and bacteremia. Improved. Tachycardia has resolved. WBC did go back up again today. Blood cultures drawn 03/02/17 are positive 2/2 sets for MRSA. Repeat blood culture drawn 03/06/17 is NGTD 1/1 set. Additional blood cultures drawn 03/07/17 are pending x 2 sets. Qualifiers: Sepsis type: methicillin resistant Staphylococcus aureus Qualified Code(s) : A41.02 - Sepsis due to Methicillin resistant Staphylococcus aureus (2) Bacteremia Current Visit: Yes Status: Acute Causative organism MRSA. Source direct inoculation from IV drug injection vs. left thigh abscess. Complicated due to infective endocarditis. Blood cultures drawn 03/02/17 are positive 2/2 sets for MRSA. Repeat blood culture x 1 set drawn 03/06/17 is NGTD. Additional blood cultures drawn 03/07/17 are pending x 2 sets. TTE shows a very small oscillating echodensity on the subvalvular apparatus ( chordae tendinae) of the mitral valve that possible represents a small vegetation. Given the patient's bacteremia, high index of suspicion that this is a vegetation. Discussed with Dr. Dang who read the ECHO. States he does not think a ALIVIA is warranted or would change the course of therapy. No endocarditis stigmata noted on exam. The patient has two major and one minor Modified Jimenez's criteria. Await repeat blood cultures. Continue Vancomycin IV. Pharmacy to dose. Goal trough approximately 15. Last VT 8.8. Discussed dosing with Jarad Clinical PharmD. Could be contributing to the patient's worsening leukocytosis. Duration of treatment depends on the clinical picture, but likely 6 weeks of IV antibiotics will be required due to the IE. Monitor renal function and for drug toxicity and dose-adjust antibiotics. Due to the patient's history of IV drug use, she will require placement at a rehab/ECF or LTAC to complete her IV antibiotic therapy. policy services representative consulted to assist with discharge planning. Continue contact precautions per protocol. (3) Endocarditis Current Visit: Yes Status: Acute TTE completed 03/03/17 shows a very small oscillating echodensity on the subvalvular apparatus (chordae tendinae) of the mitral valve that possibly represents a small vegetation. Discussed with Dr. Dang. States that this is most likely a vegetation and recommends treating as such. States he does not think a ALIVIA would yield additional information. Continue antibiotics as above. Qualifiers: Endocarditis type: infective Infective endocarditis organism: bacterial Chronicity: acute Qualified Code(s): I33.0 - Acute and subacute infective endocarditis (4) Abscess of left thigh Current Visit: Yes Status: Acute Likely seeding from bacteremia as the patient denies any trauma or injecting drugs into this particular site. Causative organism MRSA. CT of the LLE completed 03/02/17 showed a 5.5 x 5 x 9.2cm fluid collection within the proximal vastus intermedius muscle partially encasing the proximal femoral diaphysis consistent with abscess. ESR >130, CRP 151. Orthopedics was consulted and recommended the patient be evaluated by IR. Status post CT-guided aspiration and drain placement 03/05/17. Procedure report reviewed. 40ml purulent fluid aspirated. Culture positive for MRSA. 70ml output documented over the last 24 hours. Clinically, the patient appears to be improving. CRP is trending down, but WBC worse this morning. Concern for possible source control issue. Discussed with Anny Miller PA-C, with the orthopedics team. Will get CT of the LLE to re -evaluate for possible worsening of the abscess of inadequate drainage. Continue antibiotics as above. (5) Pain of left lower extremity Current Visit: Yes Status: Acute (6) Hypokalemia Current Visit: Yes Status: Resolved (7) IVDU (intravenous drug user) Current Visit: Yes Status: Chronic Reports history of IV heroin use 3 weeks ago. Known Hep C positive. HIV test negative. (8) Hepatitis C antibody positive in blood Current Visit: Yes Status: Acute - Subjective Interval history: Patient seen and examined. No acute events noted overnight. Patient states that her left leg is still sore, but is better today. Denies fevers, chills, or rigors. Denies chest pain, shortness of breath, or cough. Denies nausea, vomiting, diarrhea, or constipation. Denies urinary complaints. Denies oral thrush or new skin lesions. She denies abdominal pain and states her appetite is good. Infect Dis PN-Objective Data - Labs CBC & Chem 7: 03/09/17 07:08 03/09/17 07:08 Labs: Laboratory Results - last 24 hr 03/07/17 03/07/17 03/08/17 12:43 21:59 05:47 WBC 21.1 H RBC 3.58 L Hgb 9.9 L Hct 30.5 L MCV 85.2 MCH 27.7 L MCHC 32.5 RDW 14.6 H Plt Count 386 MPV 9.6 Immature Gran % 3.9 Seg Neutrophils % 66.5 Lymphocytes % 23.5 Monocytes % 4.6 Eosinophils % 1.2 Basophils % 0.3 Neutrophils # 14.0 H Lymphocytes # 5.0 H Monocytes # 1.0 Eosinophils # 0.3 Basophils # 0.1 Sodium Potassium Chloride Carbon Dioxide BUN Creatinine Est GFR ( Amer) Est GFR (Non-Af Amer) BUN/Creatinine Ratio Glucose Calculated Osmolality Calcium Total Bilirubin AST ALT Alkaline Phosphatase C-Reactive Protein Serum Total Protein Albumin Globulin Albumin/Globulin Ratio Vancomycin Trough 8.8 L HIV Ag/Ab Combo Qual Nonreactive 03/08/17 05:47 WBC RBC Hgb Hct MCV MCH MCHC RDW Plt Count MPV Immature Gran % Seg Neutrophils % Lymphocytes % Monocytes % Eosinophils % Basophils % Neutrophils # Lymphocytes # Monocytes # Eosinophils # Basophils # Sodium 140 Potassium 3.6 Chloride 110 H Carbon Dioxide 23 BUN 4 L Creatinine 0.66 Est GFR ( Amer) > 60 Est GFR (Non-Af Amer) > 60 BUN/Creatinine Ratio 6 Glucose 81 Calculated Osmolality 286 Calcium 8.2 L Total Bilirubin 0.2 AST 10 ALT 7 Alkaline Phosphatase 58 C-Reactive Protein 48 H Serum Total Protein 6.4 Albumin 2.4 L Globulin 4.0 H Albumin/Globulin Ratio 0.6 L Vancomycin Trough HIV Ag/Ab Combo Qual Cultures: Cultures 03/06/17 14:04 Blood Culture - Preliminary Peripheral Venipuncture No growth. 03/05/17 11:35 Anaerobic Culture - Preliminary Left Leg At this time, no anaerobic growth is present. The culture will be finalized after 5 days of incubation. 03/05/17 11:36 Wound Culture - Final Left Thigh Methicillin Resistant S.aureus 03/05/17 11:34 Gram Stain - Final Left Thigh Serology 03/07/17 Range/Units 12:43 HIV Ag/Ab Combo Qual Nonreactive (Nonreactive) Exam - Constitutional Vitals: Temp Pulse Resp BP Pulse Ox 98.5 F 88 16 112/66 99 03/08/17 12:12 03/08/17 12:12 03/08/17 12:12 03/08/17 12:12 03/08/17 12:12 General appearance: average body habitus, cooperative, no acute distress - Head Head exam: Present: atraumatic, normal inspection, normocephalic - Eye Eye exam: Present: EOMI, normal appearance, PERRL Pupils: Present: normal accommodation Additional comments: No subconjunctival hemorrhage noted. - ENT ENT exam: Present: mucous membranes moist - Neck Neck exam: Present: normal inspection - Respiratory Respiratory exam: Present: CTAB. Absent: rales, respiratory distress, rhonchi, wheezes - Cardiovascular Cardiovascular exam: Present: RRR, +S1, +S2 - GI/Abdominal GI/Abdominal exam: Present: normal bowel sounds, soft. Absent: distended, tenderness - Extremities Exam Extremities exam: Present: tenderness (left lateral thigh). Absent: joint swelling Additional comments: Left thigh ABRAHAM drain noted with small amount of thin purulent drainage noted in the suction bulb. No fluctuance, erythema, warmth, or induration noted. No endocarditis stigmata noted. - Back Exam Back exam: Present: normal inspection. Absent: paraspinal tenderness, vertebral tenderness - Neurological Exam Neurological exam: Present: alert, oriented X3, no focal deficits - Psychiatric Psychiatric exam: Present: normal affect, normal mood - Skin Skin exam: Present: dry, intact, normal color, warm Consult Discharge Plan - Plan Referrals: Kavon Shetty, BANKING SERVICES ADVISOR [Primary Care Provider] - (ecf placement) Prescriptions: HYDROcodone/Acet 5/325 mg [[place] 5-325 mg] 1 tab PO Q6HR PRN #12 tablet PRN Reason: Moderate Pain Vancomycin/0.9 % Sod Chloride [Vanco 2 Gram/500 ml-0.9% NaCl] 2 gm IV Q12H #14 plast..bag - Attending Attestation I examined this patient and my medical decision-making was reviewed with the HEAVY EQUIPMENT FIELD MECHANIC/PA/Advanced Practice Nurse/Resident Physician. I agree with the documented findings, disposition and treatment plan as described except to the extent set forth below.
--- NOTE | 2017-03-08 18:55 | Internal Med Progress Note ---
Date of Encounter: 03/08/17 Time of Encounter: 09:00 - Assessment and plan (1) DVT prophylaxis Current Visit: Yes Status: Acute Assessment and plan: Heparin subcutaneously (2) Abscess of left thigh Current Visit: Yes Status: Acute Assessment and plan: SP drainage by interventional radiology. On antibiotic. WBC is still high but trended down. Culture shows MRSA. Continue vancomycin. ID consult appreciated. May need 6 weeks iv abx. Patient is at high risk because of vancomycin, need close monitoring. (3) Bacteremia Current Visit: Yes Status: Acute Assessment and plan: Blood culture positive for MRSA. Repeat a blood culture negative. May need a long-term antibiotic. (4) Endocarditis Current Visit: Yes Status: Acute Assessment and plan: TTE shows suspected vegetation. ID consult appreciated. In the long-term antibiotic treatment. D/W cardiology, ALIVIA is not needed because not change therapy. Qualifiers: Endocarditis type: infective Infective endocarditis organism: bacterial Chronicity: acute Qualified Code(s): I33.0 - Acute and subacute infective endocarditis (5) Hepatitis C antibody positive in blood Current Visit: Yes Status: Acute Assessment and plan: Patient is aware of she has hep C. She will follow PCP and treated as outpatient (6) Hypokalemia Current Visit: Yes Status: Resolved Assessment and plan: Improved after potassium supplement. (7) IVDU (intravenous drug user) Current Visit: Yes Status: Chronic Assessment and plan: color drum worker consult. Patient may need ECF discharge for long-term IV antibiotic use - Time Spent With Patient Greater than 35 minutes - Subjective Interval history: Patient is a 26-year-old female admitted for left thigh abscess. Her past medical history is significant for IV drug abuse, hepatitis C positive. Patient had drainage placed by IR. I saw and examined the patient. Complaining of left-sided thigh pain. Otherwise no complaints. Vitals are stable. No fever. First set of blood culture shows MRSA. Repeat culture no growth. ID consult appreciated. We will continue vancomycin. WBC elevated but pt doing fine. Patient to need a long- term iv antibiotic treatment. - Constitutional Vitals: Temp Pulse Resp BP Pulse Ox 98.5 F 88 16 112/66 99 03/08/17 12:12 03/08/17 12:12 03/08/17 12:12 03/08/17 12:12 03/08/17 12:12 General appearance: Present: A&O X 3, no acute distress, answers questions appropriately - Head Head exam: Present: atraumatic, normocephalic - Eye Eye exam: Present: PERRL, conjuntiva pink, sclera anicteric Pupils: Present: PERRL - Neck Neck exam general surgery: Present: supple, trachea midline. Absent: lymphadenopathy - Respiratory Respiratory exam: Present: CTAB. Absent: accessory muscle use, rales, rhonchi, wheezes - Cardiovascular Cardiovascular exam: Present: RRR, +S1, +S2. Absent: diastolic murmur, gallop, rubs, systolic murmur - GI/Abdominal GI/Abdominal exam: Present: normal bowel sounds, soft, no peritoneal signs. Absent: distended, tenderness - Extremities Exam Extremities exam: Present: warm, radial pulses palpable and symetrical. Absent : calf tenderness, cyanotic, pedal edema Additional comments: Left thigh abscess drainage in place. - Neurological Exam Neurological exam: Present: CN II-XII intact, oriented X3, no focal deficits. Absent: pronater drift, facial droop, speech deficit - Skin Skin exam: Present: dry, intact Internal Medicine: Result - Labs CBC & Chem 7: 03/08/17 05:47 03/08/17 05:47 Labs: Short CBC 03/08/17 Range/Units 05:47 WBC 21.1 H (4.3-11.1) K/mcL Hgb 9.9 L (11.5-15.4) g/dL Hct 30.5 L (35.3-44.9) % Plt Count 386 (140-400) K/mcL Neutrophils # 14.0 H (1.6-8.9) K/mcL BMP 03/08/17 05:47 Sodium 140 Potassium 3.6 Chloride 110 H Carbon Dioxide 23 BUN 4 L Creatinine 0.66 Glucose 81 Calcium 8.2 L Liver Function 03/08/17 Range/Units 05:47 Total Bilirubin 0.2 (0.2-1.2) mg/dL AST 10 (5-34) Units/L ALT 7 (0-55) Units/L Alkaline Phosphatase 58 (38-126) Units/L Albumin 2.4 L (3.5-5.0) g/dL - ABG Interpretation ABG results: PT/INR, D-dimer PT 16.8 Seconds (9.4-12.1) H 03/03/17 03:48 Consult Discharge Plan - Plan Referrals: Kavon Shetty CNP [Primary Care Provider] - (ecf placement) Prescriptions: HYDROcodone/Acet 5/325 mg [[place] 5-325 mg] 1 tab PO Q6HR PRN #12 tablet PRN Reason: Moderate Pain Vancomycin/0.9 % Sod Chloride [Vanco 2 Gram/500 ml-0.9% NaCl] 2 gm IV Q12H #14 plast..bag
--- NOTE | 2017-03-08 19:02 | Anesthesia Evaluation PreOp ---
Date of Encounter: 03/08/17 Time of Encounter: 19:01 - Past History Planned Operation: I&D Left Thigh Cardiac History: Denies any Significant Hx Pulmonary History: Smoker VERIFICATION REP History: Other (Anxiety/Depression) Other Medical History: Hepatic (Hep C) Anesthesia History: No Prior Anesthetic Complications, Past Anesthesia (T&A, BMT , Laparoscopy) : No (Test ordered 03/08/2017) Alcohol Use: none Drug use: IVDU (IV Heroin 3 weeks ago) Medications and Allergies Acetaminophen [Tylenol] 650 mg PO Q6HR PRN #0 tablet 03/06/17 [Rx] HYDROcodone/Acet 5/325 mg [[place] 5-325 mg] 1 tab PO Q6HR PRN #12 tablet [Rx] Nicotine Patch [Nicoderm] 21 mg TD DAILY patch.td24 03/06/17 [Rx] Vancomycin/0.9 % Sod Chloride [Vanco 2 Gram/500 ml-0.9% NaCl] 2 gm IV Q12H #14 plast..bag 03/08/17 [Rx] Allergies Cyclobenzaprine [From Flexeril] Allergy (Verified 03/02/17 18:24) Rash ketorolac [From Toradol] Allergy (Verified 10/08/16 15:23) Hives tramadol [From Ultram] Allergy (Verified 10/08/16 15:23) Hives - Meds/Allergy Pre-op Review Medications Reviewed: Yes Allergies Reviewed: Yes Beta Blockers on Current Med List: No Anesthesia Results - Labs 03/08/17 05:47 03/08/17 05:47 Echo 03/03/17 [id number] Small vegitation on Mitral valve Normal valvular function - Imaging EKG: image reviewed (ST) Anesthesia Exam O2 Sat Weight 75.9 kg O2 Sat by Pulse Oximetry 99 O2 Sat by Pulse Oximetry 99 O2 Sat by Pulse Oximetry 98 Vital Signs Temp Pulse Resp BP Pulse Ox 98.3 F 131 16 118/70 100 03/02/17 18:24 03/02/17 18:24 03/02/17 18:24 03/02/17 18:24 03/02/17 18:24 Height: 5'3'' Weight: 167# NPO (# of Hours): > 8 hrs Pain Scale: 0 - HEENT Pupil (Motor): Pupils equal, EOMI Mallampati: II Teeth: Normal Oral Opening: Greater than 3 - VERIFICATION REP LOC: Oriented VERIFICATION REP Motor: Normal RUE, Normal LUE, Normal RLE, Normal LLE, Normal Face VERIFICATION REP Sensory: Normal: RUE, LUE, RLE, LLE, Face - Cardiac Rhythm: Regular Murmur: None JVD: No Carotid Bruit: No - Pulmonary Breath Sounds: bilateral Clear Respiratory Effort: Symmetrical Anesthesia Assess/Plan ASA Score: 3 Modified [place] Scale for Level of Consciousness: Cooperative, oriented, and tranquil Anesthetic Plan: General Autologous Blood: Yes Monitoring Plan: Standard Monitors Recovery Plan: PACU
[2017-03-09] MEDS: *HR* Heparin 5,000 UNIT/ML VIAL SQ SCH ×4 (00:05→23:31)
[2017-03-09] MEDS: *HR* OxyCODONE/APAP 10/325 TABLET PO PRN ×4 (04:46→23:31)
[2017-03-09 08:00] LABS: Basophils # 0.1 K/mcL (0.0-0.2); Basophils % 0.4 %; Eosinophils # 0.3 K/mcL (0.0-0.6); Eosinophils % 1.9 %; Hematocrit 30.9 % (35.3-44.9); Hemoglobin 9.9 g/dL (11.5-15.4); Immature Granulocytes % 2.5 % (0-4); Lymphocytes # 4.4 K/mcL (0.6-4.6); Lymphocytes % 26.8 %; Mean Corpuscular Hemoglobin 27.5 pg (28.0-33.3); Mean Corpuscular Volume 85.8 fL (83.0-100.0); Mean Platelet Volume 9.4 fL (9.4-12.4); Monocytes # 0.8 K/mcL (0.0-1.3); Monocytes % 4.7 %; Neutrophils # 10.5 K/mcL (1.6-8.9); Platelet Count 373 K/mcL (140-400); Red Cell Distribution Width 14.6 % (11.5-14.5); Segmented Neutrophils % 63.7 %
[2017-03-09 08:17] LABS: BUN/Creatinine Ratio 6 (6-26); Calcium 8.7 mg/dL (8.6-10.8); Carbon Dioxide 27 mEq/L (19-29); Chloride 107 mEq/L (98-109); Glucose 90 mg/dL (70-99); Osmolality,Calculated 286 (280-300); Sodium 140 mEq/L (136-145); eGFR For African Americans > 60 (> 60); eGFR For Non-African Americans > 60 (> 60)
[2017-03-09 08:21] LABS: Blood Urea Nitrogen 4 mg/dL (7-20)
[2017-03-09] MEDS: Nicotine 21 MG PATCH.TD24 TD SCH (09:33)
[2017-03-09] MEDS: Lactobacillus 1 EACH CAP.SPRINK PO SCH (09:34)
--- NOTE | 2017-03-09 10:43 | Infectious Disease Progress No ---
Date of Encounter: 03/09/17 Time of Encounter: 10:41 - Assessment and Plan (1) Sepsis Current Visit: Yes Status: Acute The patient had two SIRS criteria on admission. Likely secondary to left thigh abscess and bacteremia. Improved. Tachycardia has resolved. WBC back down to 16 today. Blood cultures drawn 03/02/17 are positive 2/2 sets for MRSA. Repeat blood culture drawn 03/06/17 is NGTD 1/1 set. Additional blood cultures drawn 03/07/17 are NGTD x 2 sets. Qualifiers: Sepsis type: methicillin resistant Staphylococcus aureus Qualified Code(s) : A41.02 - Sepsis due to Methicillin resistant Staphylococcus aureus (2) Bacteremia Current Visit: Yes Status: Acute Causative organism MRSA. Source direct inoculation from IV drug injection vs. left thigh abscess. Complicated due to infective endocarditis. Blood cultures drawn 03/02/17 are positive 2/2 sets for MRSA. Repeat blood culture x 1 set drawn 03/06/17 is NGTD. Additional blood cultures drawn 03/07/17 are NGTD x 2 sets. TTE shows a very small oscillating echodensity on the subvalvular apparatus ( chordae tendinae) of the mitral valve that possible represents a small vegetation. Given the patient's bacteremia, high index of suspicion that this is a vegetation. Discussed with Dr. Dang who read the ECHO. States he does not think a ALIVIA is warranted or would change the course of therapy. No endocarditis stigmata noted on exam. The patient has two major and one minor Modified Jimenez's criteria. Await repeat blood cultures. Continue Vancomycin IV. Pharmacy to dose. Goal trough approximately 15. Last VT 8.8. Discussed dosing with Jarad Clinical PharmD. Could be contributing to the patient's worsening leukocytosis. Repeat Vanc trough per pharmacy recommendations. Duration of treatment depends on the clinical picture, but likely 6 weeks of IV antibiotics will be required due to the IE. Monitor renal function and for drug toxicity and dose-adjust antibiotics. Due to the patient's history of IV drug use, she will require placement at a rehab/ECF or LTAC to complete her IV antibiotic therapy. on site services specialist consulted to assist with discharge planning. Continue contact precautions per protocol. (3) Endocarditis Current Visit: Yes Status: Acute TTE completed 03/03/17 shows a very small oscillating echodensity on the subvalvular apparatus (chordae tendinae) of the mitral valve that possibly represents a small vegetation. Discussed with Dr. Dang. States that this is most likely a vegetation and recommends treating as such. States he does not think a ALIVIA would yield additional information. Continue antibiotics as above. Qualifiers: Endocarditis type: infective Infective endocarditis organism: bacterial Chronicity: acute Qualified Code(s): I33.0 - Acute and subacute infective endocarditis (4) Abscess of left thigh Current Visit: Yes Status: Acute Likely seeding from bacteremia as the patient denies any trauma or injecting drugs into this particular site. Causative organism MRSA. CT of the LLE completed 03/02/17 showed a 5.5 x 5 x 9.2cm fluid collection within the proximal vastus intermedius muscle partially encasing the proximal femoral diaphysis consistent with abscess. ESR >130, CRP 151. Orthopedics was consulted and recommended the patient be evaluated by IR. Status post CT-guided aspiration and drain placement 03/05/17. Procedure report reviewed. 40ml purulent fluid aspirated. Culture positive for MRSA. 70ml output documented over the last 24 hours. Clinically, the patient appears to be improving, but due to worsening leukocytosis, ortho recommended MRI of the left femur which showed a large 9.5x6.9x4.2cm irregular peripherally enhancing fluid collection within the proximal aspect of the vastus intermedius muscle partially encasing the proximal left femoral diaphysis compatible with an abscess and not significantly changed from previous CT. There are also findings consistent with myositis and cellulitis within the adjacent musculature and subcutaneous fat. Ortho noted reviewed. Plan to take patient to the OR later today for I & D. Continue antibiotics as above. Await intra-operative findings. (5) Pain of left lower extremity Current Visit: Yes Status: Acute (6) Hypokalemia Current Visit: Yes Status: Resolved (7) IVDU (intravenous drug user) Current Visit: Yes Status: Chronic Reports history of IV heroin use 3 weeks ago. Known Hep C positive. HIV test negative. (8) Hepatitis C antibody positive in blood Current Visit: Yes Status: Acute - Subjective Interval history: Patient seen and examined. No acute events noted overnight. Patient states that her left leg pain is a little worse today, which she attributes to ambulating more yesterday. Denies fevers, chills, or rigors. Denies chest pain, shortness of breath, or cough. Denies nausea, vomiting, diarrhea, or constipation. Denies urinary complaints. Denies oral thrush or new skin lesions. She denies abdominal pain and states her appetite is good. She is currently NPO for surgery later today. Infect Dis PN-Objective Data - Labs CBC & Chem 7: 03/09/17 07:08 03/09/17 07:08 Labs: Laboratory Results - last 24 hr 03/08/17 03/09/17 03/09/17 23:10 07:08 07:08 WBC 16.5 H RBC 3.60 L Hgb 9.9 L Hct 30.9 L MCV 85.8 MCH 27.5 L MCHC 32.0 RDW 14.6 H Plt Count 373 MPV 9.4 Immature Gran % 2.5 Seg Neutrophils % 63.7 Lymphocytes % 26.8 Monocytes % 4.7 Eosinophils % 1.9 Basophils % 0.4 Neutrophils # 10.5 H Lymphocytes # 4.4 Monocytes # 0.8 Eosinophils # 0.3 Basophils # 0.1 Sodium 140 Potassium 4.0 Chloride 107 Carbon Dioxide 27 BUN 4 L Creatinine 0.65 Est GFR ( Amer) > 60 Est GFR (Non-Af Amer) > 60 BUN/Creatinine Ratio 6 Glucose 90 Calculated Osmolality 286 Calcium 8.7 Urine Test Negative Cultures: Cultures 03/07/17 12:43 Blood Culture - Preliminary Peripheral Venipuncture No growth. 03/07/17 12:38 Blood Culture - Preliminary Peripheral Venipuncture No growth. 03/06/17 14:04 Blood Culture - Preliminary Peripheral Venipuncture No growth. 03/05/17 11:35 Anaerobic Culture - Preliminary Left Leg At this time, no anaerobic growth is present. The culture will be finalized after 5 days of incubation. 03/05/17 11:36 Wound Culture - Final Left Thigh Methicillin Resistant S.aureus 03/05/17 11:34 Gram Stain - Final Left Thigh Serology 03/08/17 03/07/17 Range/Units 23:10 12:43 Urine Test Negative (Negative) HIV Ag/Ab Combo Qual Nonreactive (Nonreactive) - Impressions Impressions Femur MRI 03/08/17 13:18 IMPRESSION: 1. Large 9.5 x 6.9 x 4.2 cm irregular peripherally enhancing fluid collection within the proximal aspect of the vastus intermedius muscle partially encasing the proximal left femoral diaphysis compatible with an abscess and not significantly changed from the previous CT. A drainage catheter terminates within the fluid collection. 2. Edema within the adjacent musculature and subcutaneous fat compatible with myositis/cellulitis. 3. No acute osseous abnormality. D/ / Gianfranco Bob MD / Gianfranco Bob MD Interpreting Provider: Gianfranco Bob MD Exam - Constitutional Vitals: Temp Pulse Resp BP Pulse Ox 98.4 F 64 14 118/74 99 03/09/17 08:08 03/09/17 08:08 03/09/17 08:08 03/09/17 08:08 03/09/17 08:08 General appearance: average body habitus, cooperative, no acute distress - Head Head exam: Present: atraumatic, normal inspection, normocephalic - Eye Eye exam: Present: EOMI, normal appearance, PERRL Pupils: Present: normal accommodation Additional comments: No subconjunctival hemorrhage noted. - ENT ENT exam: Present: mucous membranes moist - Neck Neck exam: Present: normal inspection - Respiratory Respiratory exam: Present: CTAB. Absent: rales, respiratory distress, rhonchi, wheezes - Cardiovascular Cardiovascular exam: Present: RRR, +S1, +S2 - GI/Abdominal GI/Abdominal exam: Present: normal bowel sounds, soft. Absent: distended, tenderness - Extremities Exam Extremities exam: Present: normal inspection, tenderness (left thigh). Absent: joint swelling, pedal edema Additional comments: Left thigh ABRAHAM drain with small amount of purulent drainage noted. No induration , fluctuance, warmth, or erythema noted on exam. No endocarditis stigmata noted. - Back Exam Back exam: Present: normal inspection. Absent: paraspinal tenderness, vertebral tenderness - Neurological Exam Neurological exam: Present: alert, oriented X3, no focal deficits - Psychiatric Psychiatric exam: Present: normal affect, normal mood - Skin Skin exam: Present: dry, intact, normal color, warm Consult Discharge Plan - Plan Referrals: Kavon Shetty, JEWELER APPRENTICE [Primary Care Provider] - (ecf placement) Prescriptions: HYDROcodone/Acet 5/325 mg [[place] 5-325 mg] 1 tab PO Q6HR PRN #12 tablet PRN Reason: Moderate Pain Vancomycin/0.9 % Sod Chloride [Vanco 2 Gram/500 ml-0.9% NaCl] 2 gm IV Q12H #14 plast..bag - Attending Attestation I examined this patient and my medical decision-making was reviewed with the PRINTED CIRCUIT BOARDS LAMINATOR/PA/Advanced Practice Nurse/Resident Physician. I agree with the documented findings, disposition and treatment plan as described except to the extent set forth below.
[2017-03-09] MEDS: Vancomycin 2,000 MG in D5% in Water 500 ML IVPB SCH (12:20)
--- NOTE | 2017-03-09 12:20 | Event Note ---
Date of Encounter: 03/09/17 Time of Encounter: 12:16 The patient has a left thigh abscess that did not fully respond to interventional radiology drainage. I discussed patient that performing an open incision drainage. The new MRI was reviewed. The informed consent was obtained from the patient.
[2017-03-09] MEDS ORDERED: Ondansetron 4 MG/2 ML VIAL ONE (12:44)
[2017-03-09] MEDS ORDERED: Lidocaine -MPF 2% 2 ML VIAL ONE (12:44)
[2017-03-09] MEDS ORDERED: *HR* Midazolam HCl 2 MG/2 ML VIAL ONE (12:44)
[2017-03-09] MEDS ORDERED: *HR* FentaNYL (PF) 100 MCG/2 ML VIAL ONE ×2 (12:44)
[2017-03-09] MEDS ORDERED: *HR* Propofol 200 MG/20 ML VIAL IVP ONE (12:44)
--- NOTE | 2017-03-09 13:19 | Operative Note ---
Date of procedure: 03/09/17 Pre-op diagnosis: Left thigh deep abscess Post-op diagnosis: same Procedure: Left thigh incision drainage of deep abscess Anesthesia: PATRICIA Surgeon: Finesse Young Estimated blood loss (cc): 10 Specimen: None Condition: stable Disposition: PACU Procedure in Detail: Indications: Patient is 26-year-old woman complaining of right thigh pain and swelling. MRI showed a right thigh abscess around the proximal femur, anteriorly. The abscess was drained by interventional radiology; however, patient still symptomatic. MRI still shows a large abscess. Cultures grew out MRSA. Procedure: The patient was brought to operating room and placed or table in supine position. She was on IV vancomycin from the floor. A sign in was performed. The patient underwent general anesthesia. The lateral placed drain was removed. The patient's left hip and thigh were prepped and draped in usual sterile fashion. A timeout was performed. A 5 cm long actual anterior incision was made at the proximal thigh. The abscess was located anterior to the femoral shaft, submuscular, and laterally from the less trochanter extending down. The subcutaneous fat was dissected with Bovie cautery. The muscle fascia over the rectus femoris was identified and split longitudinally. A blunt dissection was performed through the muscle tissue. Was repaired down to level of the anterior cortex, there was a large pus pocket which may be drained out. This was suctioned out. Bluntly spread elevating the muscle. The deep wound was irrigated with 3 L of normal saline. A large Hemovac was placed laterally and lightly distal to the previous drain. The drain was placed along the anterior cortex of the possible femoral shaft. The muscle fascia was closed with 2-0 PDS interrupted sutures. The deep fat layer was also closed with a 2-0 PDS. The skin was closed with 0 nylon vertical mattress and simple sutures. The old drain hole was curetted out and left to drain. The incision and deep soft tissue was injected with 10 mL 0.5% Marcaine. The Hemovac was assembled. Sterile dressings were applied. The patient was extubated and taken to the recovery room in we will condition.
[2017-03-09] MEDS ORDERED: *HR* Promethazine 25 MG/ML VIAL IVP PRN (13:24)
[2017-03-09] MEDS ORDERED: Albuterol 2.5 MG/3 ML NEBULIZER IH PRN (13:24)
[2017-03-09] MEDS: *HR* HYDROmorphone (PF) 1 MG/ML SYRINGE IVP PRN ×3 (13:30→14:05)
[2017-03-09] MEDS ORDERED: Dexamethasone 4 MG/ML VIAL ONE (13:30)
[2017-03-09] MEDS ORDERED: *HR* HYDROmorphone (PF) 1 MG/ML SYRINGE ONE (13:31)
--- NOTE | 2017-03-09 13:51 | Anesthesia Evaluation Post Op ---
Date of Encounter: 03/09/17 Time of Encounter: 13:50 - Vital Signs Vital Signs: vss - Lungs Lungs: Clear Ascult./Percussion - Airway Airway: Non-obstructed - Cardiovascular Regular Rate, Baseline Rhythm - Mental Status Mental Status: Alert & Oriented, Answers Appropriately - Pain Pain Scale: 10 Pain Scale used: Numeric (1 - 10) - Nausea Vomiting Nausea Vomiting: Present - Hydration Hydration: Ice chips, Able to void (pt medicated for painx2 dilaudid 2 mg total) - Discharge PostOp Status: Transfer Patient to floor
[2017-03-09] MEDS ORDERED: Naloxone 0.4 MG/ML INJ IVP PRN (14:46)
[2017-03-09] MEDS ORDERED: Acetaminophen 325 MG TABLET PO PRN (14:46)
[2017-03-09] MEDS ORDERED: Ondansetron 4 MG/2 ML VIAL IVP PRN (14:46)
[2017-03-09] MEDS ORDERED: *HR* HYDROcodone/Acet 5/325 mg TABLET PO PRN (14:46)
--- NOTE | 2017-03-09 17:58 | Internal Med Progress Note ---
Date of Encounter: 03/09/17 Time of Encounter: 09:00 - Assessment and plan (1) DVT prophylaxis Current Visit: Yes Status: Acute Assessment and plan: Heparin subcutaneously (2) Abscess of left thigh Current Visit: Yes Status: Acute Assessment and plan: SP drainage by interventional radiology. Further I/D done by orthopedics. On antibiotic. Culture shows MRSA. Continue vancomycin. ID consult appreciated. May need 6 weeks iv abx. Patient is at high risk because of vancomycin, need close monitoring. (3) Bacteremia Current Visit: Yes Status: Acute Assessment and plan: Blood culture positive for MRSA. Repeat a blood culture negative. May need a long-term antibiotic. (4) Endocarditis Current Visit: Yes Status: Acute Assessment and plan: TTE shows suspected vegetation. ID consult appreciated. In the long-term antibiotic treatment. D/W cardiology, ALIVIA is not needed because not change therapy. Qualifiers: Endocarditis type: infective Infective endocarditis organism: bacterial Chronicity: acute Qualified Code(s): I33.0 - Acute and subacute infective endocarditis (5) Hepatitis C antibody positive in blood Current Visit: Yes Status: Acute Assessment and plan: Patient is aware of she has hep C. She will follow PCP and treated as outpatient (6) Hypokalemia Current Visit: Yes Status: Resolved Assessment and plan: Improved after potassium supplement. (7) IVDU (intravenous drug user) Current Visit: Yes Status: Chronic Assessment and plan: sex worker or escort consult. Patient may need ECF discharge for long-term IV antibiotic use - Time Spent With Patient Greater than 35 minutes - Subjective Interval history: Patient is a 26-year-old female admitted for left thigh abscess. Her past medical history is significant for IV drug abuse, hepatitis C positive. Patient had drainage placed by IR. I saw and examined the patient. MRI shows remained abscess and I/D was done by orthpedics today. Pt has no fever. C/o left thigh pain, need pain med. Cont vanco. F/U CBC and vanco trough level. - Constitutional Vitals: Temp Pulse Resp BP Pulse Ox 98.0 F 74 18 125/74 99 03/09/17 13:20 03/09/17 14:10 03/09/17 14:10 03/09/17 14:10 03/09/17 14:10 General appearance: Present: A&O X 3, no acute distress, answers questions appropriately - Head Head exam: Present: atraumatic, normocephalic - Eye Eye exam: Present: PERRL, conjuntiva pink, sclera anicteric Pupils: Present: PERRL - Neck Neck exam general surgery: Present: supple, trachea midline. Absent: lymphadenopathy - Respiratory Respiratory exam: Present: CTAB. Absent: accessory muscle use, rales, rhonchi, wheezes - Cardiovascular Cardiovascular exam: Present: RRR, +S1, +S2. Absent: diastolic murmur, gallop, rubs, systolic murmur - GI/Abdominal GI/Abdominal exam: Present: normal bowel sounds, soft, no peritoneal signs. Absent: distended, tenderness - Extremities Exam Extremities exam: Present: warm, radial pulses palpable and symetrical. Absent : calf tenderness, cyanotic, pedal edema Additional comments: Left thigh s/p I/D, well dressed. - Neurological Exam Neurological exam: Present: CN II-XII intact, oriented X3, no focal deficits. Absent: pronater drift, facial droop, speech deficit - Skin Skin exam: Present: dry, intact Internal Medicine: Result - Labs CBC & Chem 7: 03/09/17 07:08 03/09/17 07:08 Labs: Short CBC 03/09/17 Range/Units 07:08 WBC 16.5 H (4.3-11.1) K/mcL Hgb 9.9 L (11.5-15.4) g/dL Hct 30.9 L (35.3-44.9) % Plt Count 373 (140-400) K/mcL Neutrophils # 10.5 H (1.6-8.9) K/mcL BMP 03/09/17 07:08 Sodium 140 Potassium 4.0 Chloride 107 Carbon Dioxide 27 BUN 4 L Creatinine 0.65 Glucose 90 Calcium 8.7 - ABG Interpretation ABG results: PT/INR, D-dimer PT 16.8 Seconds (9.4-12.1) H 03/03/17 03:48 - Impressions Impressions Femur MRI 03/08/17 13:18 IMPRESSION: 1. Large 9.5 x 6.9 x 4.2 cm irregular peripherally enhancing fluid collection within the proximal aspect of the vastus intermedius muscle partially encasing the proximal left femoral diaphysis compatible with an abscess and not significantly changed from the previous CT. A drainage catheter terminates within the fluid collection. 2. Edema within the adjacent musculature and subcutaneous fat compatible with myositis/cellulitis. 3. No acute osseous abnormality. D/ / Gianfranco Bob MD / Gianfranco Bob MD Interpreting Provider: Gianfranco Bob MD Consult Discharge Plan - Plan Referrals: Kavon Shetty CNP [Primary Care Provider] - (ecf placement) Prescriptions: HYDROcodone/Acet 5/325 mg [[place] 5-325 mg] 1 tab PO Q6HR PRN #12 tablet PRN Reason: Moderate Pain Vancomycin/0.9 % Sod Chloride [Vanco 2 Gram/500 ml-0.9% NaCl] 2 gm IV Q12H #14 plast..bag
[2017-03-09] MEDS ORDERED: Lactobacillus 1 EACH CAP.SPRINK PO SCH (21:00)
[2017-03-09] MEDS ORDERED: Vancomycin 2,000 MG in D5% in Water 500 ML IVPB SCH (23:30)
[2017-03-10] MEDS: *HR* OxyCODONE/APAP 10/325 TABLET PO PRN ×4 (05:13→23:17)
[2017-03-10 05:46] LABS: Basophils # 0.1 K/mcL (0.0-0.2); Basophils % 0.3 %; Hematocrit 31.9 % (35.3-44.9); Hemoglobin 10.5 g/dL (11.5-15.4); Immature Granulocytes % 1.3 % (0-4); Lymphocytes # 3.3 K/mcL (0.6-4.6); Lymphocytes % 16.3 %; Mean Corpuscular HGB Conc 32.9 g/dL (31.6-35.5); Mean Corpuscular Hemoglobin 28.1 pg (28.0-33.3); Mean Corpuscular Volume 85.3 fL (83.0-100.0); Mean Platelet Volume 11.5 fL (9.4-12.4); Monocytes # 0.6 K/mcL (0.0-1.3); Monocytes % 3.2 %; Neutrophils # 15.8 K/mcL (1.6-8.9); Platelet Count 223 K/mcL (140-400); Red Blood Count 3.74 M/mcL (3.82-4.97); Red Cell Distribution Width 14.9 % (11.5-14.5); Segmented Neutrophils % 78.9 %
[2017-03-10 06:04] LABS: BUN/Creatinine Ratio 11 (6-26); Blood Urea Nitrogen 7 mg/dL (7-20); Carbon Dioxide 21 mEq/L (19-29); Chloride 107 mEq/L (98-109); Glucose 92 mg/dL (70-99); Osmolality,Calculated 286 (280-300); Potassium 4.1 mEq/L (3.5-4.5); Sodium 139 mEq/L (136-145); eGFR For African Americans > 60 (> 60); eGFR For Non-African Americans > 60 (> 60)
[2017-03-10] MEDS ORDERED: Acetaminophen 325 MG TABLET PO PRN (07:27)
[2017-03-10] MEDS ORDERED: Ondansetron 4 MG/2 ML VIAL IVP PRN (07:27)
[2017-03-10] MEDS ORDERED: Naloxone 0.4 MG/ML INJ IVP PRN (07:29)
[2017-03-10] MEDS ORDERED: Vancomycin 1,250 MG in D5% in Water 250 ML IVPB SCH ×2 (08:00→10:00)
[2017-03-10] MEDS ORDERED: Nicotine 21 MG PATCH.TD24 TD SCH (09:00)
[2017-03-10] MEDS: Lactobacillus 1 EACH CAP.SPRINK PO SCH (09:26)
[2017-03-10] MEDS: *HR* HYDROcodone/Acet 5/325 mg TABLET PO PRN ×2 (09:26→15:19)
[2017-03-10] MEDS: Nicotine 21 MG PATCH.TD24 TD SCH (09:27)
[2017-03-10] MEDS ORDERED: Vancomycin 750 MG in D5% in Water 250 ML IVPB ONE (13:40)
--- NOTE | 2017-03-10 15:47 | Internal Med Progress Note ---
Date of Encounter: 03/10/17 Time of Encounter: 10:00 - Assessment and plan (1) DVT prophylaxis Current Visit: Yes Status: Acute Assessment and plan: Heparin subcutaneously (2) Abscess of left thigh Current Visit: Yes Status: Acute Assessment and plan: SP drainage by interventional radiology. Further I/D done by orthopedics. On antibiotic. Culture shows MRSA. Continue vancomycin. ID consult appreciated. May need 6 weeks iv abx. Patient is at high risk because of vancomycin, need close monitoring. (3) Bacteremia Current Visit: Yes Status: Acute Assessment and plan: Blood culture positive for MRSA. Repeat a blood culture negative. May need a long-term antibiotic. (4) Endocarditis Current Visit: Yes Status: Acute Assessment and plan: TTE shows suspected vegetation. ID consult appreciated. In the long-term antibiotic treatment. D/W cardiology, ALIVIA is not needed because not change therapy. Qualifiers: Endocarditis type: infective Infective endocarditis organism: bacterial Chronicity: acute Qualified Code(s): I33.0 - Acute and subacute infective endocarditis (5) Hepatitis C antibody positive in blood Current Visit: Yes Status: Acute Assessment and plan: Patient is aware of she has hep C. She will follow PCP and treated as outpatient (6) Hypokalemia Current Visit: Yes Status: Resolved Assessment and plan: Improved after potassium supplement. (7) IVDU (intravenous drug user) Current Visit: Yes Status: Chronic Assessment and plan: wardrobe specialty worker consult. Patient may need ECF discharge for long-term IV antibiotic use - Time Spent With Patient Greater than 35 minutes - Subjective Interval history: Patient is a 26-year-old female admitted for left thigh abscess. Her past medical history is significant for IV drug abuse, hepatitis C positive. Patient had drainage placed by IR. I saw and examined the patient. S/P I/D by orthpedics yesterday. Pt has no fever. C/o left thigh pain, less than yesterday, still need pain med. Cont vanco. F/U CBC and vanco trough level. WBC slightly higher but it is expected right after surgery, cont to follow. - Constitutional Vitals: Temp Pulse Resp BP Pulse Ox 98 F 67 18 112/80 99 03/10/17 15:28 03/10/17 15:28 03/10/17 15:28 03/10/17 15:28 03/10/17 15:28 General appearance: Present: A&O X 3, no acute distress, answers questions appropriately - Head Head exam: Present: atraumatic, normocephalic - Eye Eye exam: Present: PERRL, conjuntiva pink, sclera anicteric Pupils: Present: PERRL - Neck Neck exam general surgery: Present: supple, trachea midline. Absent: lymphadenopathy - Respiratory Respiratory exam: Present: CTAB. Absent: accessory muscle use, rales, rhonchi, wheezes - Cardiovascular Cardiovascular exam: Present: RRR, +S1, +S2. Absent: diastolic murmur, gallop, rubs, systolic murmur - GI/Abdominal GI/Abdominal exam: Present: normal bowel sounds, soft, no peritoneal signs. Absent: distended, tenderness - Extremities Exam Extremities exam: Present: warm, radial pulses palpable and symetrical. Absent : calf tenderness, cyanotic, pedal edema Additional comments: Left thigh s/p I/D, well dressed - Neurological Exam Neurological exam: Present: CN II-XII intact, oriented X3, no focal deficits. Absent: pronater drift, facial droop, speech deficit - Skin Skin exam: Present: dry, intact Internal Medicine: Result - Labs CBC & Chem 7: 03/10/17 05:02 03/10/17 05:02 Labs: Short CBC 03/10/17 Range/Units 05:02 WBC 20.0 H (4.3-11.1) K/mcL Hgb 10.5 L (11.5-15.4) g/dL Hct 31.9 L (35.3-44.9) % Plt Count 223 (140-400) K/mcL Neutrophils # 15.8 H (1.6-8.9) K/mcL BMP 03/10/17 05:02 Sodium 139 Potassium 4.1 Chloride 107 Carbon Dioxide 21 BUN 7 Creatinine 0.61 Glucose 92 Calcium 9.0 - ABG Interpretation ABG results: PT/INR, D-dimer PT 16.8 Seconds (9.4-12.1) H 03/03/17 03:48 - VTE Documentation of Mechanical Device: Intermittent pneumatic compression device Consult Discharge Plan - Plan Referrals: Kavon Shetty, BACK GRINDER [Primary Care Provider] - (ecf placement) Prescriptions: HYDROcodone/Acet 5/325 mg [[place] 5-325 mg] 1 tab PO Q6HR PRN #12 tablet PRN Reason: Moderate Pain Vancomycin/0.9 % Sod Chloride [Vanco 2 Gram/500 ml-0.9% NaCl] 2 gm IV Q12H #14 plast..bag
[2017-03-10] MEDS: *HR* Heparin 5,000 UNIT/ML VIAL SQ SCH (16:51)
[2017-03-11] MEDS: Vancomycin 1,750 MG in D5% in Water 250 ML IVPB SCH ×2 (00:30→11:42)
[2017-03-11] MEDS: *HR* OxyCODONE/APAP 10/325 TABLET PO PRN ×5 (04:28→20:05)
[2017-03-11] MEDS: *HR* Heparin 5,000 UNIT/ML VIAL SQ SCH ×2 (05:10→17:41)
[2017-03-11 07:36] LABS: BUN/Creatinine Ratio 15 (6-26); Blood Urea Nitrogen 10 mg/dL (7-20); Calcium 8.6 mg/dL (8.6-10.8); Carbon Dioxide 24 mEq/L (19-29); Chloride 104 mEq/L (98-109); Glucose 104 mg/dL (70-99); Osmolality,Calculated 287 (280-300); Potassium 3.4 mEq/L (3.5-4.5); Sodium 139 mEq/L (136-145); eGFR For African Americans > 60 (> 60); eGFR For Non-African Americans > 60 (> 60)
[2017-03-11 07:56] LABS: Basophils # 0.1 K/mcL (0.0-0.2); Basophils % 0.3 %; Eosinophils # 0.2 K/mcL (0.0-0.6); Eosinophils % 1.2 %; Hematocrit 31.8 % (35.3-44.9); Hemoglobin 10.1 g/dL (11.5-15.4); Immature Granulocytes % 1.5 % (0-4); Lymphocytes # 5.8 K/mcL (0.6-4.6); Lymphocytes % 34.2 %; Mean Corpuscular HGB Conc 31.8 g/dL (31.6-35.5); Mean Corpuscular Hemoglobin 27.3 pg (28.0-33.3); Mean Corpuscular Volume 85.9 fL (83.0-100.0); Mean Platelet Volume 9.7 fL (9.4-12.4); Monocytes % 5.7 %; Neutrophils # 9.6 K/mcL (1.6-8.9); Platelet Count 402 K/mcL (140-400); Red Cell Distribution Width 15.1 % (11.5-14.5); Segmented Neutrophils % 57.1 %
[2017-03-11] MEDS: Lactobacillus 1 EACH CAP.SPRINK PO SCH (08:40)
[2017-03-11] MEDS: Nicotine 21 MG PATCH.TD24 TD SCH (08:42)
--- NOTE | 2017-03-11 16:44 | Internal Med Progress Note ---
Date of Encounter: 03/11/17 Time of Encounter: 10:00 - Assessment and plan (1) DVT prophylaxis Current Visit: Yes Status: Acute Assessment and plan: Heparin subcutaneously (2) Abscess of left thigh Current Visit: Yes Status: Acute Assessment and plan: SP I/D done by orthopedics. On antibiotic. Culture shows MRSA. Continue vancomycin. ID consult appreciated. May need 6 weeks iv abx. Patient is at high risk because of vancomycin use, need close monitoring. (3) Bacteremia Current Visit: Yes Status: Acute Assessment and plan: Blood culture positive for MRSA. Repeat a blood culture negative. Need long- term iv antibiotic. (4) Endocarditis Current Visit: Yes Status: Acute Assessment and plan: TTE shows suspected vegetation. ID consult appreciated. In the long-term antibiotic treatment. D/W cardiology, ALIVIA is not needed because not change therapy. Qualifiers: Endocarditis type: infective Infective endocarditis organism: bacterial Chronicity: acute Qualified Code(s): I33.0 - Acute and subacute infective endocarditis (5) Hepatitis C antibody positive in blood Current Visit: Yes Status: Acute Assessment and plan: Patient is aware of she has hep C. She will follow PCP and treated as outpatient (6) Hypokalemia Current Visit: Yes Status: Resolved Assessment and plan: Improved after potassium supplement. 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 Patient may need ECF discharge for long-term IV antibiotic use - Time Spent With Patient Greater than 35 minutes - Subjective Interval history: Patient is a 26-year-old female admitted for left thigh abscess. Her past medical history is significant for IV drug abuse, hepatitis C positive. Patient had drainage placed by IR. I saw and examined the patient. S/P I/D by orthpedics. Pt has no fever. Still C /o left thigh pain but less, controlled by pain med. Cont vanco. WBC trend down. - Constitutional Vitals: Temp Pulse Resp BP Pulse Ox 97.9 F 70 16 137/86 98 03/11/17 08:17 03/11/17 08:17 03/11/17 08:17 03/11/17 08:17 03/11/17 08:17 General appearance: Present: A&O X 3, no acute distress, answers questions appropriately - Head Head exam: Present: atraumatic, normocephalic - Eye Eye exam: Present: PERRL, conjuntiva pink, sclera anicteric Pupils: Present: PERRL - Neck Neck exam general surgery: Present: supple, trachea midline. Absent: lymphadenopathy - Respiratory Respiratory exam: Present: CTAB. Absent: accessory muscle use, rales, rhonchi, wheezes - Cardiovascular Cardiovascular exam: Present: RRR, +S1, +S2. Absent: diastolic murmur, gallop, rubs, systolic murmur - GI/Abdominal GI/Abdominal exam: Present: normal bowel sounds, soft, no peritoneal signs. Absent: distended, tenderness - Extremities Exam Extremities exam: Present: warm, radial pulses palpable and symetrical. Absent : calf tenderness, cyanotic, pedal edema Additional comments: Left thigh s/p I/D, well dressed. - Neurological Exam Neurological exam: Present: CN II-XII intact, oriented X3, no focal deficits. Absent: pronater drift, facial droop, speech deficit - Skin Skin exam: Present: dry, intact Internal Medicine: Result - Labs CBC & Chem 7: 03/11/17 07:05 03/11/17 07:05 Labs: Short CBC 03/11/17 Range/Units 07:05 WBC 16.9 H (4.3-11.1) K/mcL Hgb 10.1 L (11.5-15.4) g/dL Hct 31.8 L (35.3-44.9) % Plt Count 402 H D (140-400) K/mcL Neutrophils # 9.6 H (1.6-8.9) K/mcL BMP 03/11/17 07:05 Sodium 139 Potassium 3.4 L Chloride 104 Carbon Dioxide 24 BUN 10 Creatinine 0.67 Glucose 104 H Calcium 8.6 - ABG Interpretation ABG results: PT/INR, D-dimer PT 16.8 Seconds (9.4-12.1) H 03/03/17 03:48 - VTE Documentation of Mechanical Device: Intermittent pneumatic compression device Consult Discharge Plan - Plan Referrals: Kavon Shetty, HARLEY [Primary Care Provider] - (ecf placement) Prescriptions: HYDROcodone/Acet 5/325 mg [[place] 5-325 mg] 1 tab PO Q6HR PRN #12 tablet PRN Reason: Moderate Pain Vancomycin/0.9 % Sod Chloride [Vanco 2 Gram/500 ml-0.9% NaCl] 2 gm IV Q12H #14 plast..bag
[2017-03-11] MEDS: *HR* HYDROcodone/Acet 5/325 mg TABLET PO PRN (17:41)
--- NOTE | 2017-03-11 20:56 | Orthopedics Progress Note ---
Date of Encounter: 03/11/17 Time of Encounter: 20:54 Subjective Principal diagnosis: Left Thigh Abscess Interval history: The patient is without complaints. Afebrile vital signs are stable. Dressing is clean dry and intact. Drain output minimal in last 24 hours. Neurovascularly intact with regard to bilateral lower extremities. Fires all upper and lower extremity motor groups. All thigh compartments soft. Assessment :stable. Plan ,continue analgesics, intravenous vancomycin, drain management per Dr. Young, discharge planning. Objective Vital signs: Vital Signs Temp Pulse Resp BP Pulse Ox 03/11/17 17:52 98.5 F 81 16 111/74 98 03/11/17 08:17 97.9 F 70 16 137/86 98 03/11/17 04:20 98.4 F 55 16 120/74 98 Intake and Output 03/11/17 03/11/17 03/11/17 07:59 15:59 23:59 Intake Total 250 / 250 250 / 250 Output Total 0 / 0 1250 / 1250 Balance 250 / 250 -1250 / -1250 250 / 250 Intake: IV Fluids 250 / 250 250 / 250 Vancocin 1,750 MG In 250 / 250 250 / 250 Dextrose 5% 250 ML @ 166. 67 mls/hr IVPB Q12H [facility] Rx#:[id number] Output: Urine 1200 / 1200 Wound Drainage 0 / 0 50 / 50 Left Thigh 0 / 0 50 / 50 Other: Weight 76.5 kg Patient Weight 03/11/17 23:59 Weight 76.5 kg - Labs CBC & BMP: 03/11/17 07:05 03/11/17 07:05 Labs: Abnormal lab results WBC 16.9 K/mcL (4.3-11.1) H 03/11/17 07:05 RBC 3.70 M/mcL (3.82-4.97) L 03/11/17 07:05 Hgb 10.1 g/dL (11.5-15.4) L 03/11/17 07:05 Hct 31.8 % (35.3-44.9) L 03/11/17 07:05 MCH 27.3 pg (28.0-33.3) L 03/11/17 07:05 RDW 15.1 % (11.5-14.5) H 03/11/17 07:05 Plt Count 402 K/mcL (140-400) H D 03/11/17 07:05 Metamyelocytes % 2.0 % (0) H 03/07/17 08:13 Myelocytes % 2.0 % (0) H 03/07/17 08:13 Neutrophils # 9.6 K/mcL (1.6-8.9) H 03/11/17 07:05 Lymphocytes # 5.8 K/mcL (0.6-4.6) H 03/11/17 07:05 Platelet Estimate Increased (Normal) H 03/07/17 08:13 ESR >= 130 mm/hr (0-15) H 03/02/17 19:06 PT 16.8 Seconds (9.4-12.1) H 03/03/17 03:48 Potassium 3.4 mEq/L (3.5-4.5) L 03/11/17 07:05 Glucose 104 mg/dL (70-99) H 03/11/17 07:05 POC Glucose 122 (58-89) H 03/03/17 17:09 C-Reactive Protein 48 mg/L (Less than 5) H 03/08/17 05:47 Albumin 2.4 g/dL (3.5-5.0) L 03/08/17 05:47 Globulin 4.0 g/dL (2.4-3.5) H 03/08/17 05:47 Albumin/Globulin Ratio 0.6 (1.1-2.2) L 03/08/17 05:47 Staphylococcus sp PCR DETECTED (Not Detect) A 03/02/17 21:51 Staph aureus (PCR) DETECTED (Not Detect) A 03/02/17 21:51 mecA-Methicil Res Gene DETECTED (Not Detect) A 03/02/17 21:51 - VTE Documentation of Mechanical Device: Intermittent pneumatic compression device Consult Discharge Plan - Plan Referrals: Kavon Shetty CNP [Primary Care Provider] - (ecf placement) Prescriptions: HYDROcodone/Acet 5/325 mg [[place] 5-325 mg] 1 tab PO Q6HR PRN #12 tablet PRN Reason: Moderate Pain Vancomycin/0.9 % Sod Chloride [Vanco 2 Gram/500 ml-0.9% NaCl] 2 gm IV Q12H #14 plast..bag
[2017-03-12] MEDS: *HR* OxyCODONE/APAP 10/325 TABLET PO PRN ×5 (00:27→17:54)
[2017-03-12] MEDS: Vancomycin 1,750 MG in D5% in Water 250 ML IVPB SCH (00:27)
[2017-03-12] MEDS: Vancomycin 1,750 MG in D5% in Water 500 ML IVPB SCH ×2 (01:01→13:43)
[2017-03-12 04:52] LABS: Basophils # 0.1 K/mcL (0.0-0.2); Basophils % 0.5 %; Eosinophils # 0.3 K/mcL (0.0-0.6); Eosinophils % 2.6 %; Hematocrit 31.8 % (35.3-44.9); Hemoglobin 10.3 g/dL (11.5-15.4); Immature Granulocytes % 2.6 % (0-4); Lymphocytes # 5.4 K/mcL (0.6-4.6); Lymphocytes % 41.1 %; Mean Corpuscular HGB Conc 32.4 g/dL (31.6-35.5); Mean Corpuscular Volume 86.4 fL (83.0-100.0); Mean Platelet Volume 9.2 fL (9.4-12.4); Monocytes # 0.7 K/mcL (0.0-1.3); Monocytes % 5.6 %; Neutrophils # 6.3 K/mcL (1.6-8.9); Platelet Count 413 K/mcL (140-400); Red Blood Count 3.68 M/mcL (3.82-4.97); Red Cell Distribution Width 15.3 % (11.5-14.5); Segmented Neutrophils % 47.6 %
[2017-03-12 05:05] LABS: BUN/Creatinine Ratio 11 (6-26); Blood Urea Nitrogen 7 mg/dL (7-20); Calcium 8.5 mg/dL (8.6-10.8); Carbon Dioxide 25 mEq/L (19-29); Chloride 105 mEq/L (98-109); Glucose 103 mg/dL (70-99); Osmolality,Calculated 284 (280-300); Potassium 3.8 mEq/L (3.5-4.5); Sodium 138 mEq/L (136-145); eGFR For African Americans > 60 (> 60); eGFR For Non-African Americans > 60 (> 60)
[2017-03-12] MEDS: *HR* Heparin 5,000 UNIT/ML VIAL SQ SCH (06:00)
[2017-03-12] MEDS: Lactobacillus 1 EACH CAP.SPRINK PO SCH (09:37)
[2017-03-12] MEDS: Nicotine 21 MG PATCH.TD24 TD SCH (09:37)
--- NOTE | 2017-03-12 10:08 | Infectious Disease Progress No ---
Date of Encounter: 03/12/17 Time of Encounter: 10:07 - Assessment and Plan (1) Sepsis Current Visit: Yes Status: Acute The patient had two SIRS criteria on admission. Likely secondary to left thigh abscess and bacteremia. Improved. Tachycardia has resolved. WBC continues to trend down. Blood cultures drawn 03/02/17 are positive 2/2 sets for MRSA. Repeat blood culture drawn 03/06/17 is negative 1/1 set. Additional blood cultures drawn 03/07/17 are negative x 2 sets. Qualifiers: Sepsis type: methicillin resistant Staphylococcus aureus Qualified Code(s) : A41.02 - Sepsis due to Methicillin resistant Staphylococcus aureus (2) Bacteremia Current Visit: Yes Status: Acute Causative organism MRSA. Source direct inoculation from IV drug injection vs. left thigh abscess. Complicated due to infective endocarditis. Blood cultures drawn 03/02/17 are positive 2/2 sets for MRSA. Repeat blood culture x 1 set drawn 03/06/17 is negative. Additional blood cultures drawn 03/07/17 are negative x 2 sets. TTE shows a very small oscillating echodensity on the subvalvular apparatus ( chordae tendinae) of the mitral valve that possible represents a small vegetation. Given the patient's bacteremia, high index of suspicion that this is a vegetation. Discussed with Dr. Dang who read the ECHO. States he does not think a ALIVIA is warranted or would change the course of therapy. No endocarditis stigmata noted on exam. The patient has two major and one minor Modified Jimenez's criteria. Continue Vancomycin IV. Pharmacy to dose. Goal trough approximately 15. Last VT 14.8 Duration of treatment depends on the clinical picture, but likely 6 weeks of IV antibiotics will be required due to the IE. Monitor renal function and for drug toxicity and dose-adjust antibiotics. Due to the patient's history of IV drug use, she will require placement at a rehab/ECF or LTAC to complete her IV antibiotic therapy. family services assistant consulted to assist with discharge planning. She has been accepted at a local ECF. Continue contact precautions per protocol. Get weekly labs every Sunday for the duration of treatment: CBC, BMP, ESR, CRP, and Vanc trough. Weekly PICC line care per protocol. Follow up with ID 03/26/17 at 0830. (3) Endocarditis Current Visit: Yes Status: Acute TTE completed 03/03/17 shows a very small oscillating echodensity on the subvalvular apparatus (chordae tendinae) of the mitral valve that possibly represents a small vegetation. Discussed with Dr. Dang. States that this is most likely a vegetation and recommends treating as such. States he does not think a ALIVIA would yield additional information. Continue antibiotics as above. The patient will require a repeat TTE upon completion of antibiotic therapy. Qualifiers: Endocarditis type: infective Infective endocarditis organism: bacterial Chronicity: acute Qualified Code(s): I33.0 - Acute and subacute infective endocarditis (4) Abscess of left thigh Current Visit: Yes Status: Acute Likely seeding from bacteremia as the patient denies any trauma or injecting drugs into this particular site. Causative organism MRSA. CT of the LLE completed 03/02/17 showed a 5.5 x 5 x 9.2cm fluid collection within the proximal vastus intermedius muscle partially encasing the proximal femoral diaphysis consistent with abscess. ESR >130, CRP 151. Orthopedics was consulted and recommended the patient be evaluated by IR. Status post CT-guided aspiration and drain placement 03/05/17. Procedure report reviewed. 40ml purulent fluid aspirated. Culture positive for MRSA. 70ml output documented over the last 24 hours. Clinically, the patient was improving, but due to worsening leukocytosis, ortho recommended MRI of the left femur which showed a large 9.5x6.9x4.2cm irregular peripherally enhancing fluid collection within the proximal aspect of the vastus intermedius muscle partially encasing the proximal left femoral diaphysis compatible with an abscess and not significantly changed from previous CT. There are also findings consistent with myositis and cellulitis within the adjacent musculature and subcutaneous fat. Status post open I & D 03/09/[address] Young. Operative note reviewed. No additional cultures were obtained. Continue antibiotics as above. Continue wound/drain care and activity restrictions as outlined by the ortho team. (5) Pain of left lower extremity Current Visit: Yes Status: Acute (6) Hypokalemia Current Visit: Yes Status: Resolved (7) IVDU (intravenous drug user) Current Visit: Yes Status: Chronic Reports history of IV heroin use 3 weeks ago. Known Hep C positive. HIV test negative. (8) Hepatitis C antibody positive in blood Current Visit: Yes Status: Acute - Subjective Interval history: Patient seen and examined. Weekend notes reviewed. No acute events noted. Patient states her left thigh pain is okay today. Denies fevers, chills, or rigors. Denies chest pain, shortness of breath, or cough. Denies nausea, vomiting, diarrhea, or constipation. Denies urinary complaints. Denies oral thrush or new skin lesions. She denies abdominal pain and states her appetite is good. Infect Dis PN-Objective Data - Labs CBC & Chem 7: 03/12/17 04:39 03/12/17 04:39 Labs: Laboratory Results - last 24 hr 03/11/17 03/12/17 03/12/17 21:32 04:39 04:39 WBC 13.2 H RBC 3.68 L Hgb 10.3 L Hct 31.8 L MCV 86.4 MCH 28.0 MCHC 32.4 RDW 15.3 H Plt Count 413 H MPV 9.2 L Immature Gran % 2.6 Seg Neutrophils % 47.6 Lymphocytes % 41.1 Monocytes % 5.6 Eosinophils % 2.6 Basophils % 0.5 Neutrophils # 6.3 Lymphocytes # 5.4 H Monocytes # 0.7 Eosinophils # 0.3 Basophils # 0.1 Immature Plt Fraction 2.0 Sodium 138 Potassium 3.8 Chloride 105 Carbon Dioxide 25 BUN 7 Creatinine 0.64 Est GFR ( Amer) > 60 Est GFR (Non-Af Amer) > 60 BUN/Creatinine Ratio 11 Glucose 103 H POC Glucose 104 H Calculated Osmolality 284 Calcium 8.5 L 03/12/17 07:58 WBC RBC Hgb Hct MCV MCH MCHC RDW Plt Count MPV Immature Gran % Seg Neutrophils % Lymphocytes % Monocytes % Eosinophils % Basophils % Neutrophils # Lymphocytes # Monocytes # Eosinophils # Basophils # Immature Plt Fraction Sodium Potassium Chloride Carbon Dioxide BUN Creatinine Est GFR ( Amer) Est GFR (Non-Af Amer) BUN/Creatinine Ratio Glucose POC Glucose 85 Calculated Osmolality Calcium Cultures: Cultures 03/06/17 14:04 Blood Culture - Final Peripheral Venipuncture No growth. 03/05/17 11:35 Anaerobic Culture - Final Left Leg No anaerobes were recovered. 03/07/17 12:43 Blood Culture - Preliminary Peripheral Venipuncture No growth. 03/07/17 12:38 Blood Culture - Preliminary Peripheral Venipuncture No growth. 03/05/17 11:36 Wound Culture - Final Left Thigh Methicillin Resistant S.aureus 03/05/17 11:34 Gram Stain - Final Left Thigh Serology 03/08/17 03/07/17 Range/Units 23:10 12:43 Urine Test Negative (Negative) HIV Ag/Ab Combo Qual Nonreactive (Nonreactive) Exam - Constitutional Vitals: Temp Pulse Resp BP Pulse Ox 97.5 F L 58 16 114/76 99 03/12/17 08:02 03/12/17 08:02 03/12/17 08:02 03/12/17 08:02 03/12/17 08:02 General appearance: average body habitus, cooperative, no acute distress - Head Head exam: Present: atraumatic, normal inspection, normocephalic - Eye Eye exam: Present: EOMI, normal appearance, PERRL Pupils: Present: normal accommodation Additional comments: No subconjunctival hemorrhage noted. - ENT ENT exam: Present: mucous membranes moist - Neck Neck exam: Present: normal inspection - Respiratory Respiratory exam: Present: CTAB. Absent: rales, respiratory distress, rhonchi, wheezes - Cardiovascular Cardiovascular exam: Present: RRR, +S1, +S2 - GI/Abdominal GI/Abdominal exam: Present: normal bowel sounds, soft. Absent: distended, tenderness - Extremities Exam Extremities exam: Present: tenderness (left lateral thigh previous drain site). Absent: joint swelling, pedal edema Additional comments: Post-op dressing C/D/I with hemovac drain noted. Small amount of bloody, purulent drainage noted in the hemovac. No erythema, induration, warmth, or tenderness noted. - Back Exam Back exam: Present: normal inspection. Absent: paraspinal tenderness, vertebral tenderness - Neurological Exam Neurological exam: Present: alert, oriented X3, no focal deficits - Psychiatric Psychiatric exam: Present: normal affect, normal mood - Skin Skin exam: Present: dry, intact, normal color, warm Additional comments: No endocarditis stigmata noted. - VTE Documentation of Mechanical Device: Intermittent pneumatic compression device Consult Discharge Plan - Plan Referrals: Nahed Gonsalez PAC [Physician Interior Design Professional] - 03/21/17 10:00 am Angela Peñaloza CNP [Advanced Practice Nurse] - 03/26/17 8:30 am Kavon Shetty CNP [Primary Care Provider] - (ecf placement) Prescriptions: HYDROcodone/Acet 5/325 mg [[place] 5-325 mg] 1 tab PO Q6HR PRN #12 tablet PRN Reason: Moderate Pain Vancomycin/0.9 % Sod Chloride [Vanco 2 Gram/500 ml-0.9% NaCl] 2 gm IV Q12H #14 plast..bag - Attending Attestation I examined this patient and my medical decision-making was reviewed with the SAMPLER AND TEST PREPARER/PA/Advanced Practice Nurse/Resident Physician. I agree with the documented findings, disposition and treatment plan as described except to the extent set forth below.
[2017-03-12] MEDS ORDERED: Lidocaine -MPF 1% 5 ML AMPUL INFILT ONE (10:45)
[2017-03-12] MEDS: *HR* HYDROcodone/Acet 5/325 mg TABLET PO PRN (12:06)
--- NOTE | 2017-03-12 14:40 | Orthopedics Progress Note ---
Date of Encounter: 03/12/17 Time of Encounter: 12:45 - Assessment and Plan (1) Abscess of left thigh Current Visit: Yes Status: Acute Drain to be removed today. Dressings to be changed daily. Motion as tolerated. Encourage frequent ambulation to decrease DVT risk. Continue IV vancomycin per ID. Plan for patient to be DC to ECF to continue IV treatment as she has previous history of IVDA. Will follow up with Nahed Gonsalez PA-C in [facility] office on 03/21/17 at 10:00am. Subjective Principal diagnosis: Left Thigh Abscess Interval history: Patient doing well on exam today with no current complaints. States she has aching pain around incision but improving. She has been ambulating well up to restroom. She has not noticed any drainage for a couple of days from the drain. Denies any numbness or tingling to extremity. Denies any calf pain. Objective Vital signs: Vital Signs Temp Pulse Resp BP Pulse Ox 03/12/17 12:01 98.5 F 75 14 102/66 98 03/12/17 08:02 97.5 F L 58 16 114/76 99 03/12/17 04:47 97.8 F 77 16 106/67 96 03/11/17 21:34 97.4 F L 76 16 107/60 98 03/11/17 17:52 98.5 F 81 16 111/74 98 Intake and Output 03/11/17 03/12/17 03/12/17 23:59 07:59 15:59 Intake Total 250 / 250 360 / 360 Output Total / 25 Balance 250 / 250 335 / 335 Intake: IV Fluids 250 / 250 Vancocin 1,750 MG In 250 / 250 Dextrose 5% 250 ML @ 166. 67 mls/hr IVPB Q12H [facility] Rx#:[id number] Oral 360 / 360 Output: Urine 0 / 0 Wound Drainage Left Thigh Other: Meal Breakfast Percent of Meal Consumed 20% Weight 77.5 kg Blood Glucose* 104 125 Patient Weight 03/12/17 23:59 Weight 77.5 kg Incision: clean and dry (dressings clean, dry, and intact. Drain intact with minimal drainage inside (few cc). No surrounding erythema, drainage or swelling. no calf tenderness to palpation. good dorsiflexion of foot. NV intact) - Labs CBC & BMP: 03/12/17 04:39 06/26/17 04:39 Labs: Abnormal lab results WBC 13.2 K/mcL (4.3-11.1) H 03/12/17 04:39 RBC 3.68 M/mcL (3.82-4.97) L 03/12/17 04:39 Hgb 10.3 g/dL (11.5-15.4) L 03/12/17 04:39 Hct 31.8 % (35.3-44.9) L 03/12/17 04:39 RDW 15.3 % (11.5-14.5) H 03/12/17 04:39 Plt Count 413 K/mcL (140-400) H 03/12/17 04:39 MPV 9.2 fL (9.4-12.4) L 03/12/17 04:39 Metamyelocytes % 2.0 % (0) H 03/07/17 08:13 Myelocytes % 2.0 % (0) H 03/07/17 08:13 Lymphocytes # 5.4 K/mcL (0.6-4.6) H 03/12/17 04:39 Platelet Estimate Increased (Normal) H 03/07/17 08:13 ESR >= 130 mm/hr (0-15) H 03/02/17 19:06 PT 16.8 Seconds (9.4-12.1) H 03/03/17 03:48 Glucose 103 mg/dL (70-99) H 03/12/17 04:39 POC Glucose 125 (58-89) H 03/12/17 10:54 Calcium 8.5 mg/dL (8.6-10.8) L 03/12/17 04:39 C-Reactive Protein 48 mg/L (Less than 5) H 03/08/17 05:47 Albumin 2.4 g/dL (3.5-5.0) L 03/08/17 05:47 Globulin 4.0 g/dL (2.4-3.5) H 03/08/17 05:47 Albumin/Globulin Ratio 0.6 (1.1-2.2) L 03/08/17 05:47 Staphylococcus sp PCR DETECTED (Not Detect) A 03/02/17 21:51 Staph aureus (PCR) DETECTED (Not Detect) A 03/02/17 21:51 mecA-Methicil Res Gene DETECTED (Not Detect) A 03/02/17 21:51 - VTE Documentation of Mechanical Device: Intermittent pneumatic compression device Consult Discharge Plan - Plan Referrals: Nahed Gonsalez, PAC [Physician Roof Mechanic] - 03/21/17 10:00 am Angela Peñaloza QC TECH [Advanced Practice Nurse] - 03/26/17 8:30 am Kavon Shetty CNP [Primary Care Provider] - (ecf placement) Prescriptions: HYDROcodone/Acet 5/325 mg [[place] 5-325 mg] 1 tab PO Q6HR PRN #12 tablet PRN Reason: Moderate Pain Vancomycin/0.9 % Sod Chloride [Vanco 2 Gram/500 ml-0.9% NaCl] 2 gm IV Q12H #14 plast..bag
--- NOTE | 2017-03-12 15:05 | Discharge Summary ---
Date of Encounter: 03/12/17 Time of Encounter: 10:00 - Discharge Diagnosis (1) DVT prophylaxis Priority: Secondary Status: Acute (2) Abscess of left thigh Priority: Primary Status: Acute (3) Bacteremia Priority: Primary Status: Acute (4) Endocarditis Priority: Primary Status: Acute Qualifiers: Endocarditis type: infective Infective endocarditis organism: bacterial Chronicity: acute Qualified Code(s): I33.0 - Acute and subacute infective endocarditis (5) Hepatitis C antibody positive in blood Priority: Secondary Status: Acute (6) Hypokalemia Priority: Secondary Status: Resolved (7) IVDU (intravenous drug user) Priority: Secondary Status: Chronic - Discharge Medications Prescriptions: RX: HYDROcodone/Acet 5/325 mg [[place] 5-325 mg] 1 tab PO Q6HR PRN #12 tablet PRN Reason: Moderate Pain Vancomycin/0.9 % Sod Chloride [Vanco 2 Gram/500 ml-0.9% NaCl] 2 gm IV Q12H #14 plast..bag Home Medications: RX: Acetaminophen [Tylenol] 650 mg PO Q6HR PRN #0 tablet 03/06/17 [Rx] RX: HYDROcodone/Acet 5/325 mg [[place] 5-325 mg] 1 tab PO Q6HR PRN #12 tablet [Rx] RX: Nicotine Patch [Nicoderm] 21 mg TD DAILY patch.td24 03/06/17 [Rx] Vancomycin/0.9 % Sod Chloride [Vanco 2 Gram/500 ml-0.9% NaCl] 2 gm IV Q12H #14 plast..bag 03/08/17 [Rx] Allergies/Adverse Reactions: Allergies Cyclobenzaprine [From Flexeril] Allergy (Verified 03/02/17 18:24) Rash ketorolac [From Toradol] Allergy (Verified 10/08/16 15:23) Hives tramadol [From Ultram] Allergy (Verified 10/08/16 15:23) Hives - Notes to Outpatient Provider 1. Pt need 6 weeks IV Abx started from 03/06/17 (first negative blood cx), supposed to end on 04/17/17, further instruction may be given after ID follow up. - Get weekly labs every Sunday for the duration of treatment: CBC, BMP, ESR , CRP, and Vanco trough. - Weekly PICC line care per protocol. - Follow up with ID 03/26/17 at 0830 2. Wound care daily, Follow up with Nahed Gonsalez PA-C in [facility] office on at 10:00am. Date of admission: 03/03/17 02:00 Primary care physician: Kavon Shetty CNP Consults: 03/12/17 08:32 Consult to Infectious Diseases [CONS] Routine Consulting Provider: Infectious Disease Wendi Reason for Consult: Endocarditis Time Notified: 08:33 Call Completed: Yes 03/12/17 10:46 Consult to Invasive Line Access Team [CONS] Routine Reason for Consult: Picc Line Insertion Line Type: PICC Discharging clinician: Margarita Roman Anticipated date of discharge: 03/12/17 - Patient Status Disposition: Transfer SNF Condition: Good - Discharge Instructions Follow Up With: Nahed Gonsalez PAC [Physician General Handling Supervisor] - 03/21/17 10:00 am Angela Peñaloza CNP [Advanced Practice Nurse] - 03/26/17 8:30 am Kavon Shetty CNP [Primary Care Provider] - (ecf placement) - Diet and Activity Activity: increase activity as tolerated Diet: regular diet Interval History: Ms. Francisco is a 26 year old female with h/o IVDU (last use of heroin about 10 days ago - did not inject in the thigh), recent diagnosis of hepatitis C - who presents to the ER with h/o left lower extremity pain. Patient reports that about a week ago, she was at [facility] and bumped her knee against some object. She reports pain at the left knee and she was diagnosed with muscle spasms and given anti-inflammatories and muscle relaxants in the urgent care. She reports pain going up to the upper thigh. Pain is sharp, 7/10, worse when she straightens the knee or tries to ambulate. She tried to take ibuprofen, without improvement of the pain. She reports allergy to toradol and tramadol. She denies fever, chills, nausea, vomiting, chest pain, shortness of breath, abdominal pain, dysuria, hematuria, bowel problems. She was evaluated in the emergency department and was noted to have leukocytosis with white cell count of 28.7, CRP 151, ESR 130. Her recent left knee x-ray showed no acute osseous abnormalities. CT scan of the left lower extremity showed 5.551.2 cm irregular peripherally enhancing fluid collection within the proximal vastus intermedius muscle compatible with an abscess. She was given IV fluids, IV vancomycin and ciprofloxacin. She is admitted to the hospitalist service for further workup and management. Hospital course: Ms. Francisco is a 26 year old female admitted for left thigh abscess. She has a history of IV drug abuse. She was found blood culture positive for MRSA. She was treated with antibiotics. Abscess has been drained by interventional radiology at the beginning, and then did I and D by orthopedic because of persistent high WBC and MRI shows remained abscess. ID consult was called, consider patient has endocarditis, recommended continue IV vancomycin for 6 weeks. Patient had a PICC line placed, and will discharge to ECF for continuous IV antibiotic treatment. I saw and examined the patient today. Doing fine, minimal pain. In no acute distress. Vitals are stable. Orthopedic has changed the dress and removed the drainage tube. Patient has no fever, WBC trended down. Would DC patient to ECF for continuous IV antibiotic infusion. Time spent discussing smoking cessation with patient: more than 10 minutes - Time Spent with Patient Total time spent providing and/or coordinating discharge services: 40 min Greater than 30 minutes - Constitutional Vitals: Temp Pulse Resp BP Pulse Ox 98.5 F 75 14 102/66 98 03/12/17 12:01 03/12/17 12:01 03/12/17 12:01 03/12/17 12:01 03/12/17 12:01 General appearance: Present: A&O X 3, no acute distress, answers questions appropriately - Head Head exam: Present: atraumatic, normocephalic - Eye Eye exam: Present: PERRL, conjuntiva pink, sclera anicteric Pupils: Present: PERRL - Neck Neck exam general surgery: Present: supple, trachea midline. Absent: lymphadenopathy - Respiratory Respiratory exam: Present: CTAB. Absent: accessory muscle use, rales, rhonchi, wheezes - Cardiovascular Cardiovascular exam: Present: RRR, +S1, +S2. Absent: diastolic murmur, gallop, rubs, systolic murmur - GI/Abdominal GI/Abdominal exam: Present: normal bowel sounds, soft, no peritoneal signs. Absent: distended, tenderness - Extremities Exam Extremities exam: Present: warm, radial pulses palpable and symetrical. Absent : calf tenderness, cyanotic, pedal edema Additional comments: Left thigh s/p I/D, well dressed - Neurological Exam Neurological exam: Present: CN II-XII intact, oriented X3, no focal deficits. Absent: pronater drift, facial droop, speech deficit - Skin Skin exam: Present: dry, intact - VTE Documentation of Mechanical Device: Intermittent pneumatic compression device
--- NOTE | 2017-03-12 15:19 | Physician Discharge Referral ---
ExtendedCare Referral Info Transfer To: [facility] Provider in Charge after Transfer: Other - Diagnosis (1) DVT prophylaxis Priority: Secondary Status: Acute (2) Abscess of left thigh Priority: Primary Status: Acute (3) Bacteremia Priority: Primary Status: Acute (4) Endocarditis Priority: Primary Status: Acute (5) Hepatitis C antibody positive in blood Priority: Secondary Status: Acute (6) Hypokalemia Priority: Secondary Status: Resolved (7) IVDU (intravenous drug user) Priority: Secondary Status: Chronic - Transfer Medications Prescriptions: HYDROcodone/Acet 5/325 mg [[place] 5-325 mg] 1 tab PO Q6HR PRN #12 tablet PRN Reason: Moderate Pain Vancomycin/0.9 % Sod Chloride [Vanco 2 Gram/500 ml-0.9% NaCl] 2 gm IV Q12H #14 plast..bag Home Medications: Acetaminophen [Tylenol] 650 mg PO Q6HR PRN #0 tablet 03/06/17 [Rx] HYDROcodone/Acet 5/325 mg [[place] 5-325 mg] 1 tab PO Q6HR PRN #12 tablet [Rx] Nicotine Patch [Nicoderm] 21 mg TD DAILY patch.td24 03/06/17 [Rx] Vancomycin/0.9 % Sod Chloride [Vanco 2 Gram/500 ml-0.9% NaCl] 2 gm IV Q12H #14 plast..bag 03/08/17 [Rx] Allergies/Adverse Reactions: Allergies Cyclobenzaprine [From Flexeril] Allergy (Verified 03/02/17 18:24) Rash ketorolac [From Toradol] Allergy (Verified 10/08/16 15:23) Hives tramadol [From Ultram] Allergy (Verified 10/08/16 15:23) Hives - Respiratory Orders Smoking Cessation: Smoking cessation has been advised. For more information, call the [place] Tobacco Quit Line at 2-805-FWEC-NOW. - Lab Orders Lab Orders: Other (include drug levels w/frequency) (Get vanco trough tomorrow. Then get weekly labs every Sunday for the duration of treatment: CBC, BMP, ESR, CRP, and Vanco trough) - Advance Directives Code Status: Full Code - Rehabiliation Orders Rehab Potential: Good - Diet Orders Regular CERTIFICATION: I certify that the transfer of the above named patient to an Extended Care Facility is necessary for the continuing treatment of the diagnosis listed. The above information is true and accurate reflection of patient's current condition. Confidential - Redisclosure prohibited without a patient's written consent.
[2017-03-12 17:03] VITALS: BP 107/68
[2017-03-12] MEDS ORDERED: Aminoglycoside Consult 1 EACH MC ONE (17:58)
== END 2017-03-12 17:59 | DRG 720 ==
LOC: EMEROO 18:09 → 3NENU 18:09 → SUATTDRO 03-03 02:00 → 2ANU 03-06 11:23
PROVIDERS: ADMIT Hospitalist; ATTEND Internal Medicine
PROC: IRDRAIN (2017-03-05 11:00)